=== PATIENT | female | born 1960 | race Caucasian/White ===

== ENCOUNTER 2022-04-26 15:35 | Inpatient (IN) ==
[2022-04-26] MEDS ORDERED: Patient's ALLERGY Info needs ENTERED SCH (18:00)
[2022-04-26] MEDS ORDERED: HYDROmorphone INJ 1 MG/ML SYRINGE IV STA (19:01)
[2022-04-26 19:12] LABS: Basophils # (auto) 0.01 K/uL (0-0.2); Basophils % (auto) 0.1 %; Eosinophils # (auto) 0.07 K/uL (0-0.50); Eosinophils % (auto) 0.7 %; Hematocrit (blood only) 32.4 % (34.1-44.9); Hemoglobin 10.8 g/dl (12.0-16.0); Immature Granulocytes # (auto) 0.03 K/uL (0.00-0.02); Immature Granulocytes % (auto) 0.3 %; Lymphocytes # (auto) 0.98 K/uL (1.2-3.4); Lymphocytes % (auto) 9.7 %; Mean Corpuscular Hemoglobin 28.9 pg (25.0-34.0); Mean Corpuscular Hgb Conc 33.3 g/dL (32.0-36.0); Mean Corpuscular Volume 86.6 fL (80.0-100.0); Mean Platelet Volume 11.4 fL (9.4-12.3); Monocytes # (auto) 0.77 K/uL (0.24-0.82); Monocytes % (auto) 7.6 %; Neutrophils # (auto) 8.28 K/uL (1.4-6.5); Neutrophils % (auto) 81.6 %; Platelet Count 178 K/uL (130-400); RDW Standard Deviation 40.9 fL (36.4-46.3); Red Blood Count 3.74 M/uL (3.93-5.22); White Blood Count 10.14 K/ul (4.8-10.8)
--- NOTE | 2022-04-26 19:20 | Emergency Department Note ---
History of Present Illness General Chief complaint: Shoulder Pain Stated complaint: SHOULDER INJURY Time Seen by Provider: 04/26/22 18:45 History of Present Illness Maximum Pain Intensity: 10 This is a 61-year-old female with a history of tachycardia, reflux, who was referred to the emergency department by Dr. Kirkpatrick (orthopedics) for admission secondary to uncontrolled pain related to a complex fracture to her right shoulder. Patient was seen at an outside facility 2 days ago after a fall onto the right shoulder. She states she was standing on a chair removing a tote off the top shelf when she accidentally lost her balance and landed on concrete hitting the floor. She did not hit her head or lose consciousness. At the outside ED, she was diagnosed with a shoulder fracture, given a sling and pain medication, and told to follow-up with orthopedics. She states that she has not slept in 2 days because of the pain. She has been taking 2 Percocets every 4 hours without much relief. She followed up with orthopedics today who referred her to the emergency department, requested CT of the shoulder and admission for pain control until she can have a reverse total shoulder arthroplasty 2 days from now. Patient denies any headache, neck pain, back pain, chest pain, shortness of breath, nausea, vomiting, numbness or tingling in her hands or legs. Does not take any blood thinners. Past Med/Surg History Medical History GERD (gastroesophageal reflux disease) Hypertension Tachycardia Surgical History H/O: hysterectomy Social History Smoking Status: Never smoker Feels Safe at Home: Yes Review of Systems See HPI for pertinent positives & negatives. and A total of 10 systems reviewed and were otherwise negative Physical Exam Vital Signs Vital Signs - 24 hr 04/26/22 17:28 04/26/22 18:31 Temperature 98.6 F Temperature Source Temporal Artery Scan Pulse Rate 92 H Pulse Rate [Right Finger] 93 H Respiratory Rate 20 14 Respiratory Effort / Characteristics Non-Labored Non-Labored Spontaneous Respiratory Depth Normal Normal Respiratory Pattern Regular Blood Pressure 149/82 H Blood Pressure [Left Arm] 147/77 H Blood Pressure Mean 104 Blood Pressure Mean [Left Arm] 100 Pulse Oximetry 94 96 Oxygen Delivery Method Room Air Room Air Sepsis Recent Fever Within 48 Hours No Sepsis New/Unexplained Change in Mental Status N/A Sepsis Action Taken by Nursing No Action Required CONSTITUTIONAL: Well developed, well nourished, in no acute distress. HEAD: Normocephalic, atraumatic. NECK: Full active range of motion. No spinous process tenderness RESPIRATORY: Breathing unlabored and symmetric. Lungs clear to auscultation bilaterally. No wheeze, rales, or rhonchi. CARDIOVASCULAR: Regular rate and rhythm. No murmurs, rubs, or gallops. Radial pulses 2+ bilaterally. CHEST: Nontender, no crepitus. ABDOMEN: Normal bowel sounds. Soft, nontender, no peritonitis. No masses. MUSCULOSKELETAL: Right arm in sling. There is significant tenderness over the shoulder. No ecchymosis or skin disruption. Able to move all fingers. Back: No thoracic, lumbar, sacral spinous process tenderness. No step-off deformity. SKIN: [place], warm, dry. Bilateral hands are warm and well-perfused. NEUROLOGIC: Awake, alert, oriented. Gaze is conjugate. Face symmetric. No sensory deficits in bilateral hands or axillary nerve distribution. PSYCHIATRIC: Appropriate. Normal affect. Course Administered Medications Discontinued Medications Diazepam (Diazepam 5 Mg/Ml Inj 10ml Vial) 2 mg IV NOW STA Stop: 04/26/22 19:25 Last Admin: 04/26/22 19:48 Dose: 2 mg Documented By: Hydromorphone HCl (Hydromorphone Inj 1 Mg/Ml Syringe) 1 mg IV NOW STA Stop: 04/26/22 19:02 Last Admin: 04/26/22 19:47 Dose: 1 mg Documented By: Potassium Chloride (Potassium Chloride Crtab 20 Meq Tabcr) 40 meq PO NOW STA Stop: 04/26/22 19:56 Last Admin: 04/26/22 20:20 Dose: 40 meq Documented By: Medical Decision Making Differential Diagnosis Fracture, uncontrolled pain, neurovascular injury, concussion, intracranial hemorrhage, dislocation, subluxation, compartment syndrome, among other pathology Laboratory Data Result diagrams: 04/26/22 18:20 04/26/22 18:20 Lab Results 04/26/22 04/26/22 04/26/22 Range/Units 18:20 18:20 19:50 WBC 10.14 (4.8-10.8) K/ul RBC 3.74 L (3.93-5.22) M/uL Hgb 10.8 L (12.0-16.0) g/dl Hct 32.4 L (34.1-44.9) % MCV 86.6 (80.0-100.0) fL MCH 28.9 (25.0-34.0) pg MCHC 33.3 (32.0-36.0) g/dL RDW Std Deviation 40.9 (36.4-46.3) fL RDW Coeff of Dave 13.0 (11.5-14.5) % Plt Count 178 (130-400) K/uL MPV 11.4 (9.4-12.3) fL Immature Gran % (Auto) 0.3 % Neut % (Auto) 81.6 % Lymph % (Auto) 9.7 % [place] % (Auto) 7.6 % Eos % (Auto) 0.7 % Baso % (Auto) 0.1 % Neut # (Auto) 8.28 H (1.4-6.5) K/uL Lymph # (Auto) 0.98 L (1.2-3.4) K/uL [place] # (Auto) 0.77 (0.24-0.82) K/uL Eos # (Auto) 0.07 (0-0.50) K/uL Baso # (Auto) 0.01 (0-0.2) K/uL Immature Gran # (Auto) 0.03 H (0.00-0.02) K/uL Sodium 135 L (136-145) mmol/L Potassium 3.2 L (3.5-5.1) mmol/L Chloride 98 (98-107) mmol/L Carbon Dioxide 28 (21-32) mmol/L Anion Gap 9 (3-11) BUN 15 (6-23) mg/dl Creatinine 1.03 (0.6-1.2) mg/dl Est Cr Clr Drug Dosing 65.2 ml/min Est GFR ( Amer) 68.9 ml/min Est GFR (Non-Af Amer) 59.5 ml/min BUN/Creatinine Ratio 14.6 (10-20) Glucose 197 H (70-99(Fasting)) mg/dl Calcium 8.4 L (8.5-10.1) mg/dl Total Bilirubin 0.5 (0.2-1.0) mg/dl AST 23 (13-39) U/L ALT 19 (7-52) U/L Alkaline Phosphatase 84 (34-104) U/L Total Protein 7.1 (6.0-8.3) gm/dl Albumin 4.1 (3.4-5.0) gm/dl Globulin 3.0 (2.5-4.0) gm/dl Albumin/Globulin Ratio 1.4 (0.9-2) SARS-CoV-2, RNA, NAAT NEGATIVE (NEGATIVE) Imaging Data Radiologist's Impression: Shoulder CT 04/26/22 19:[address] DOSE: 783.95 mGy.cm HISTORY: Right shoulder fracture with pain. Known fracture, planning purposes TECHNIQUE: Multiaxial CT images of the right shoulder were performed and reformatted in the sagittal and coronal plane without the use of contrast. A dose lowering technique was utilized adhering to the principles of ALARA. COMPARISON: None. FINDINGS: The right clavicle and scapula are intact. There is a severely comminuted nondisplaced fracture involving the right humeral head/neck. There is anterior dislocation of the humeral head fragments in relation to the glenoid. There is associated impaction fracture of the screw head fragment with the anterior-inferior glenoid. The fragments demonstrate up to 3 cm of lateral displacement. There is an associated moderate lipohemarthrosis at the glenohumeral joint. Soft tissue swelling within the right upper arm. Patchy peripheral groundglass densities at the right lung base may represent dependent change. IMPRESSION: Severely comminuted and displaced right humeral head/neck fracture with associated anterior dislocation of the humeral head fragments. ACT 112: Negative or not required by law. Electronically signed by: Sourav Flynn M.D. 04/26/2022 8:17 PM MDM Narrative 61-year-old female referred to the emergency department by orthopedics for admission with plan for surgical fixation of a right shoulder complex fracture. On initial exam, patient slightly hypertensive. No additional injuries were identified on review of systems and physical exam as described above. She appears to be neurovascularly intact. CT of the right shoulder was requested by Dr. Kirkpatrick and this was obtained demonstrating a severely comminuted and displaced right humeral head/neck fracture with associated anterior dislocation of the humeral head fragments. Patient given Dilaudid and Valium for initial pain control. Basic labs were obtained demonstrating mild anemia with a hemoglobin of 10.8. Potassium 3.2, repleted orally by hospitalist. Glucose somewhat elevated at 197, may be undiagnosed diabetes or pain response. Case discussed with Christina Ferrari PA-C with [facility] Hospitalist group who agrees to admit the patient under Dr. Ricks with Ortho consult. Impression & Plan Shoulder fracture, right, Hypokalemia, Uncontrolled pain Discharge Plan Visit Data Chief Complaint: Shoulder Pain Stated Complaint: SHOULDER INJURY ED Provider: Gagan Burrell ED Midlevel Provider: Ventura Thao Discharge Problem: Shoulder fracture, right, Hypokalemia, Uncontrolled pain Patient Disposition: Admitted As Inpatient Condition: Fair Referrals Referrals: PCP,NO [Primary Care Provider] - : Shoulder fracture, right Qualifiers: Encounter type: initial encounter Fracture type: closed Qualified Code(s): S42.91XA - Fracture of right shoulder girdle, part unspecified, initial encounter for closed fracture
[2022-04-26 19:49] LABS: Albumin Globulin Ratio 1.4 (0.9-2); Albumin Level 4.1 gm/dl (3.4-5.0); BUN Creatinine Ratio 14.6 (10-20); Bilirubin,Total 0.5 mg/dl (0.2-1.0); Calcium 8.4 mg/dl (8.5-10.1); Creatinine Clr Calc Pharmacy 65.2 ml/min; Est GFR (African American) 68.9 ml/min; Est GFR (Non-African American) 59.5 ml/min; Potassium 3.2 mmol/L (3.5-5.1); Total Protein 7.1 gm/dl (6.0-8.3)
--- NOTE | 2022-04-26 19:50 | History & Physical Report ---
Date of Service April 26, 2022 Assessment & Plan (1) Shoulder fracture, right: Plan: - s/p mechanical fall on Tuesday, per ED triage note, it is a displaced right proximal humerus fracture - Seen at OSH on Tuesday, d/c'd with Percocet for pain control and f/u with Dr. Kirkpatrick/ortho today, who sent her over today for pain not adequately controlled. - CT: Severely comminuted and displaced right humeral head/neck fracture with associated anterior dislocation of the humeral head fragments. - For now: prn pain meds, regular diet, and ortho consult in AM. Apparently there are plans for shoulder repair this Saturday 04/28. - NV checks q4h. (2) Hypertension: Plan: - Continue triamterene/HCTZ. (3) Tachycardia: Plan: - Reportedly on atenolol at home, unknown dose. Will check with pt. (4) GERD (gastroesophageal reflux disease): Plan: - Protonix daily. Plan - Admit to med/tele for now for reports of tachycardia - SCDs for vte ppx for now - Full Code. History of Present Illness Chief Complaint: right shoulder pain s/p fracture Primary Care Provider: NO PCP Miguel Gracia is a 61-year-old female with a history of hypertension, intermittent sinus tachycardia, and GERD who is presenting today at the referral of orthopedics for pain management. Patient fell off a chair 3 days ago on Tuesday, 04/23 while standing on it to reach something overhead. She was seen at an outside hospital that day. She has a displaced right proximal humerus fracture, was sent home with Percocet for pain management and was to follow-up with orthopedics today for surgical planning. She met with Dr. Kirkpatrick today, and he been complaining of 10/10 pain not relieved with prescribed Percocet, Aleve, or Tylenol and has not been able to sleep due to the pain. He referred her to the ED today to be admitted for pain control with plan for a procedure 04/28. On presentation, heart rate in the 90s, mildly hypertensive, otherwise vital signs within normal limits and stable. Labs notable for an Hgb of 10.8 unsure of baseline, CMP with K 3.2, glucose 197, calcium 8.4. CT: Severely comminuted and displaced right humeral head/neck fracture with associated anterior dislocation of the humeral head fragments. Past Med/Surg History Medical History GERD (gastroesophageal reflux disease) Hypertension Tachycardia Surgical History H/O: hysterectomy Social History Smoking Status: Never smoker Feels Safe at Home: Yes Review of Systems Review of Systems: Constitutional: No fever/chills, weakness, fatigue, myalgias, anorexia, night sweats Eyes: No diplopia, no worsening or blurred vision ENT: normal hearing, no trouble swallowing Respiratory: No cough, sputum, dyspnea at rest or on exertion Cardiovascular: No chest pain, tightness or palpitations Abdomen: No pain, nausea, vomiting, diarrhea or constipation : Denies dysuria, hematuria, increased urgency/frequency, urinary retention Musculoskeletal: right shoulder throbbing pain 8/10 currently; No joint pain, calf pain, swelling Neurologic: No weakness, numbness/tingling, or balance problems Psychiatric: No anxiety or depression Skin: No rash or itch Physical Exam Physical Exam: General: awake, alert, no apparent distress Head: Normocephalic, atraumatic ENT: PERRL, EOMI, no pharyngeal exudate, mucous membranes moist Chest: Clear to auscultation, on room air, no adventitious breath sounds Cardiac: Regular rate and rhythm, no murmur, no JVD, normal peripheral pulses, good capillary refill Abdominal: NABS x 4 quadrants, soft, nontender to palpation, no rebound, guarding or tenderness Extremities: right shoulder in sling, pain on ROM and on palpation; pulses intact and equal b/l; Normal inspection, no peripheral edema or erythema, calfs nontender to palpation Psych: Normal mood and affect Neuro: AAO x 3, strength intact bilaterally and rated 5/5, no motor deficits, speech is clear, no peripheral sensory deficits Skin: no rash or erythema Results & Data Results & Data ([facility]) Vital Signs (Past 12 Hours) Vital Signs Temp Pulse Pulse Resp BP BP Pulse Ox 04/26/22 18:31 93 H 14 147/77 H 96 11/28/22 17:28 37.0 C 92 H 20 149/82 H 94 O2 Del Method 04/26/22 18:31 Room Air 04/26/22 17:28 Room Air Laboratory Results Abnormal lab results 04/26/22 04/26/22 Range/Units 18:20 18:20 RBC 3.74 L (3.93-5.22) M/uL Hgb 10.8 L (12.0-16.0) g/dl Hct 32.4 L (34.1-44.9) % Neut # (Auto) 8.28 H (1.4-6.5) K/uL Lymph # (Auto) 0.98 L (1.2-3.4) K/uL Immature Gran # (Auto) 0.03 H (0.00-0.02) K/uL Sodium 135 L (136-145) mmol/L Potassium 3.2 L (3.5-5.1) mmol/L Glucose 197 H (70-99(Fasting)) mg/dl Calcium 8.4 L (8.5-10.1) mg/dl Diagnostic Findings Shoulder CT 04/26/22 19:[address] DOSE: 783.95 mGy.cm HISTORY: Right shoulder fracture with pain. Known fracture, planning purposes TECHNIQUE: Multiaxial CT images of the right shoulder were performed and reformatted in the sagittal and coronal plane without the use of contrast. A dose lowering technique was utilized adhering to the principles of ALARA. COMPARISON: None. FINDINGS: The right clavicle and scapula are intact. There is a severely com minuted nondisplaced fracture involving the right humeral head/neck. There is anterior dislocation of the humeral head fragments in relation to the glenoid. There is associated impaction fracture of the screw head fragment with the anterior-inferior glenoid. The fragments demonstrate up to 3 cm of lateral displacement. There is an associated moderate lipohemarthrosis at the glenohumeral joint. Soft tissue swelling within the right upper arm. Patchy peripheral groundglass densities at the right lung base may represent dependent change. IMPRESSION: Severely comminuted and displaced right humeral head/neck fracture with associated anterior dislocation of the humeral head fragments. ACT 112: Negative or not required by law. Electronically signed by: Sourav Flynn M.D. 04/26/2022 8:17 PM Code Status & VTE Plan Code Status Full Code. Supervising Physician Co-Signing Physician Notes Patient seen and examined, chart reviewed, case discussed with CALEB Ferrari and I agree with the assessment and plan as above. In brief, patient is a 61yo female with history of HTN and GERD presenting with severe pain secondary to right humeral head/neck fracture. Patient sustained a fall two days ago while standing on a chair and fell onto her right shoulder. No head trauma or LOC. She was seen at an outside facility and was given Percocet 2 tabs q 4 hours for pain. She has been compliant with these medications but is still in severe pain. She is to followup with Orthopedics for reverse total shoulder arthroplasty on 04/28/22. Neurovascularly intact. Patient denies chest pain, cough, SOB or fever. No additional complaints at this time. On exam she is afebrile, HD stable, NAD. Resting comfortably. RUE immobilized in sling Skin -intact, no rashes/lesions HEENT - NC/AT, MMM Heart - +S1/S2, regular, no m/r/g Lungs - CTA anteriorly, no rales/rhonchi/wheezes Abd - Soft, NT/ND Ext - warm, well perfused. RUE NV intact Labs and images reviewed CT as above with severely comminuted and displaced right humeral head/neck fracutre with associated anterior dislocation of the humeral head fragments. K=3.2 [id number] Assessment/Plan 61yo female s/p fall from standing on a chair resulting in right humeral head/neck fracture with anterior dislocation of fragments presenting for pain control. She is to have reverse total shoulder arthroplasty on 04/28/22. -Pain control, Orthopedics consultation appreciated. NV checks q 4 hours -HTN management with Atenolol and Triamterene/HCTZ -GERD management with daily Protonix -Remainder as above PG Care Time/CCT Total # of Minutes Spent Total Time Spent with Patient: Total time spent is greater than 50% in coordination of care (as documented) at patient's floor/unit and/or counseling patient: Coding Level of Care Code 10035 Initial Inpt Care Lvl 3 Diagnoses Shoulder fracture, right S42.91XA Hypertension I10 Tachycardia R00.0 GERD (gastroesophageal reflux disease) K21.9
[2022-04-26] MEDS ORDERED: POTASSIUM CHLORIDE CRTAB 20 MEQ TABCR PO STA (19:55)
--- NOTE | 2022-04-26 20:20 | CT Scan Report ---
RIGHT SHOULDER CT CT DOSE: 783.95 mGy.cm HISTORY: Right shoulder fracture with pain. Known fracture, planning purposes TECHNIQUE: Multiaxial CT images of the right shoulder were performed and reformatted in the sagittal and coronal plane without the use of contrast. A dose lowering technique was utilized adhering to th e principles of ALARA. COMPARISON: None. FINDINGS: The right clavicle and scapula are intact. There is a severely comminuted nondisplaced frac ture involving the right humeral head/neck. There is anterior dislocation of the humeral head fragmen ts in relation to the glenoid. There is associated impaction fracture of the screw head fragment with the anterior-inferior glenoid. The fragments demonstrate up to 3 cm of lateral displacement. There i s an associated moderate lipohemarthrosis at the glenohumeral joint. Soft tissue swelling within the right upper arm. Patchy peripheral groundglass densities at the right lung base may represent depende nt change. IMPRESSION: Severely comminuted and displaced right humeral head/neck fracture with associated anterior dislocati on of the humeral head fragments. ACT 112: Negative or not required by law. Electronically signed by: Sourav Flynn M.D. 04/26/2022 8:17 PM
[2022-04-26] MEDS ORDERED: MoRPHine SULFATE 4 MG/ML 1 ML CARP\\VIAL IV STA (22:38)
[2022-04-26] MEDS ORDERED: TRIAMCINOLONE ACET 0.025% CR 15 GM TUBE EXT PRN (23:28)
[2022-04-26] MEDS ORDERED: HYDROmorphone INJ 0.5 MG/0.5 ML SYR IV PRN (23:28)
[2022-04-26] MEDS ORDERED: BETAMETHASONE VAL 0.1% CR 15 GM EXT PRN (23:28)
[2022-04-26] MEDS ORDERED: metroNIDAZOLE 0.75% TOPICAL GEL 45 GM TUBE TOP PRN (23:28)
[2022-04-26] MEDS ORDERED: FLUTICASONE PROPIONATE NA SPR 16 GM BTL PRN (23:28)
[2022-04-27] MEDS: HYDROmorphone INJ 0.5 MG/0.5 ML SYR IV PRN ×7 (02:44→22:36)
[2022-04-27] MEDS: ACETAMINOPHEN 325 MG TAB PO PRN ×2 (04:09→13:54)
[2022-04-27] MEDS ORDERED: FLUARIX QUADRIVALENT 0.5 ML SYR IM ONE (07:42)
[2022-04-27] MEDS ORDERED: PNEUMOCOCCAL POLYSACCHARIDES 25 MCG/0.5 ML VIAL/SYR IM ONE (07:42)
[2022-04-27] MEDS: TRIAMTERENE/HCTZ 37.5/25MG TAB PO SCH (08:48)
[2022-04-27] MEDS: ATENOLOL 25 MG TABLET PO SCH (08:48)
[2022-04-27] MEDS: PANTOprazole 40 MG TAB PO SCH (08:48)
[2022-04-27] MEDS: BRIMONIDINE TARTRATE-P 0.15% 5 ML BTL OP SCH (08:49)
[2022-04-27] MEDS: prednisoLONE acetate 1% OP SUSP 5 ML BTL OPL SCH ×2 (08:51→23:17)
[2022-04-27] MEDS: LIDOCAINE 5% 1 PATCH TD SCH (08:52)
--- NOTE | 2022-04-27 11:04 | Orthopedic Consultation ---
Date of Consultation April 27, 2022 Assessment & Plan (1) Shoulder fracture, right: 61-year-old white female with proximal humerus fracture. Patient will be added onto the surgical schedule for tomorrow, 04/28/2022 for planned reverse total shoulder arthroplasty. Patient understands the plan and is in agreement. History of Present Illness Reason for Consultation: Right proximal humerus fracture Attending Physician: Samson Morales DO History of Present Illness Patient is a 61-year-old female with a history of hypertension, intermittent sinus tachycardia, and GERD. Patient states that she was up on a stepladder getting down a canvas told her were covered. She was in the process of pulling on the tote and realize that it was fairly heavy. She tried to let go of the tote because of how much it weighed however her hand was caught in the handle and as the tote fell, it pulled her off of the stepladder onto the floor. She landed on her right shoulder on cement and had immediate pain in her right shoulder. She was seen in [facility] yesterday under Dr. Kirkpatrick and Scar Tian PA-C's care. X-rays were taken and was found she had a comminuted proximal right humerus fracture. The fracture was going to require a reverse total shoulder arthroplasty. Plans were for direct admission to the hospital however due to code flow restrictions, this could not be done. The patient was then sent to the emergency room for planned admission and CT scan of the right shoulder. She was admitted by the medicine service and we will be taking care of her fracture. Currently she is awake and alert. Pain is controlled. Allergies Allergy/AdvReac Type Severity Reaction Status Date / Time iodine Allergy Mild Hives Verified 04/27/22 09:18 Sulfa (Sulfonamide Allergy Mild Hives Verified 04/27/22 09:18 Antibiotics) sulfamethoxazole Allergy Mild Hives Verified 04/27/22 09:18 [From Bactrim] trimethoprim [From Bactrim] Allergy Mild Hives Verified 04/27/22 09:18 povidone-iodine Allergy Unknown Hives Verified 04/27/22 11:36 [From Betadine] Home Medications Medication Instructions Recorded Confirmed Type albuterol sulfate 2.5 mg/3 mL 2.5 mg continuous nebulization Q6H 04/27/22 04/27/22 History (0.083 %) solution for nebulization albuterol sulfate 90 mcg/actuation 2 inh inhalation Q6H 04/27/22 04/27/22 History aerosol inhaler atenolol 25 mg tablet 25 mg PO QAM 04/27/22 04/27/22 History benzonatate 100 mg capsule 100 mg PO BID PRN Cough 04/27/22 04/27/22 History betamethasone valerate 0.1 % lotion 1 applic topical 2XWK PRN Dry Skin 04/27/22 04/27/22 History brimonidine 0.2 % eye drops 1 drp OPR BID 04/27/22 04/27/22 History ketoconazole 2 % shampoo 1 applic topical 2XWK PRN Dry Skin 04/27/22 04/27/22 History metronidazole 0.75 % topical cream 1 applic topical BID 04/27/22 04/27/22 History pantoprazole 40 mg tablet,delayed 40 mg PO DAILY 04/27/22 04/27/22 History release triamterene 37.5 1 tab PO QAM 04/27/22 04/27/22 History mg-hydrochlorothiazide 25 mg tablet Patient History Medical History GERD (gastroesophageal reflux disease) Hypertension Tachycardia Surgical History H/O: hysterectomy Social History Smoking Status: Never smoker Second Hand Exposure: Yes; Do You Dip or Chew Tobacco: No; Tobacco Cessation Education Requested by Patient: No Hx Alcohol Use: Yes Hx Substance Use: No Preferred Language: Hungarian Communication Ability: Effective Skeet Operator Required: No Beliefs That Will Affect Care: None Current Living Situation: Spouse Current Living Situation Comment: lives with two grandchildren Other Information That Helps Us Care for You: No Feels Safe at Home: Yes Safety Concerns: Feels Safe At This Time Assistive Devices: None Physical Exam Physical Exam: Patient is a 61-year-old white female who appears her stated a ge. She is pleasant and cooperative. Oriented x3. No acute distress. On examination of her right upper extremity, she has swelling over the right proximal humerus/shoulder. Pain with palpation. Some swelling traveling distally. She has no pain in the right elbow on palpation. Denies pain in the right wrist and has good range of motion. She is moving her fingers well and has good sensation. Capillary fill is less than 2 seconds. Left upper extremity is unaffected and she has good range of motion of the left shoulder, elbow, and wrist. Lower extremities are unaffected and range of motion is is within normal limits of both lower extremities. Distal pulses are equal bilaterally of the upper and lower extremities. There is no gross motor or sensory loss seen at this time. She denies any increased cervical, thoracic, lumbar pain. Results & Data ([facility]) Vital Signs (Past 12 Hours) Vital Signs Temp Pulse Resp BP Pulse Ox Pulse Ox O2 Del Method 04/27/22 07:17 36.9 C 92 H 20 137/78 92 Room Air 04/27/22 07:10 98 H 20 137/78 95 Room Air 04/27/22 06:29 91 H 18 130/71 95 Room Air 04/27/22 01:57 92 04/27/22 01:56 95 H 18 151/88 H 92 Room Air O2 Del Method 04/27/22 07:17 04/27/22 07:10 04/27/22 06:29 04/27/22 01:57 Room Air 04/27/22 01:56 Laboratory Results Laboratory Results WBC 10.14 K/ul (4.8-10.8) 04/26/22 18:20 RBC 3.74 M/uL (3.93-5.22) L 04/26/22 18:20 Hgb 10.8 g/dl (12.0-16.0) L 04/26/22 18:20 Hct 32.4 % (34.1-44.9) L 04/26/22 18:20 MCV 86.6 fL (80.0-100.0) 04/26/22 18:20 MCH 28.9 pg (25.0-34.0) 04/26/22 18:20 MCHC 33.3 g/dL (32.0-36.0) 04/26/22 18:20 RDW Std Deviation 40.9 fL (36.4-46.3) 04/26/22 18:20 RDW Coeff of Dave 13.0 % (11.5-14.5) 04/26/22 18:20 Plt Count 178 K/uL (130-400) 04/26/22 18:20 MPV 11.4 fL (9.4-12.3) 04/26/22 18:20 Immature Gran % (Auto) 0.3 % 04/26/22 18:20 Neut % (Auto) 81.6 % 04/26/22 18:20 Lymph % (Auto) 9.7 % 04/26/22 18:20 [place] % (Auto) 7.6 % 04/26/22 18:20 Eos % (Auto) 0.7 % 04/26/22 18:20 Baso % (Auto) 0.1 % 04/26/22 18:20 Neut # (Auto) 8.28 K/uL (1.4-6.5) H 04/26/22 18:20 Lymph # (Auto) 0.98 K/uL (1.2-3.4) L 04/26/22 18:20 [place] # (Auto) 0.77 K/uL (0.24-0.82) 04/26/22 18:20 Eos # (Auto) 0.07 K/uL (0-0.50) 04/26/22 18:20 Baso # (Auto) 0.01 K/uL (0-0.2) 04/26/22 18:20 Immature Gran # (Auto) 0.03 K/uL (0.00-0.02) H 04/26/22 18:20 Sodium 135 mmol/L (136-145) L 04/26/22 18:20 Potassium 3.2 mmol/L (3.5-5.1) L 04/26/22 18:20 Chloride 98 mmol/L (98-107) 04/26/22 18:20 Carbon Dioxide 28 mmol/L (21-32) 04/26/22 18:20 Anion Gap 9 (3-11) 04/26/22 18:20 BUN 15 mg/dl (6-23) 04/26/22 18:20 Creatinine 1.03 mg/dl (0.6-1.2) 04/26/22 18:20 Est Cr Clr Drug Dosing 65.2 ml/min 04/26/22 18:20 Est GFR ( Amer) 68.9 ml/min 04/26/22 18:20 Est GFR (Non-Af Amer) 59.5 ml/min 04/26/22 18:20 BUN/Creatinine Ratio 14.6 (10-20) 04/26/22 18:20 Glucose 197 mg/dl (70-99(Fasting)) H 04/26/22 18:20 Calcium 8.4 mg/dl (8.5-10.1) L 04/26/22 18:20 Total Bilirubin 0.5 mg/dl (0.2-1.0) 04/26/22 18:20 AST 23 U/L (13-39) 04/26/22 18:20 ALT 19 U/L (7-52) 04/26/22 18:20 Alkaline Phosphatase 84 U/L (34-104) 04/26/22 18:20 Total Protein 7.1 gm/dl (6.0-8.3) 04/26/22 18:20 Albumin 4.1 gm/dl (3.4-5.0) 04/26/22 18:20 Globulin 3.0 gm/dl (2.5-4.0) 04/26/22 18:20 Albumin/Globulin Ratio 1.4 (0.9-2) 04/26/22 18:20 SARS-CoV-2, RNA, NAAT NEGATIVE (NEGATIVE) 04/26/22 19:[address] 04/26/22 19:[address] DOSE: 783.95 mGy.cm HISTORY: Right shoulder fracture with pain. Known fracture, planning purposes TECHNIQUE: Multiaxial CT images of the right shoulder were performed and reformatted in the sagittal and coronal plane without the use of contrast. A dose lowering technique was utilized adhering to the principles of ALARA. COMPARISON: None. FINDINGS: The right clavicle and scapula are intact. There is a severely comminuted nondisplaced fracture involving the right humeral head/neck. There is anterior dislocation of the humeral head fragments in relation to the glenoid. There is associated impaction fracture of the screw head fragment with the anterior-inferior glenoid. The fragments demonstrate up to 3 cm of lateral displacement. There is an associated moderate lipohemarthrosis at the glenohumeral joint. Soft tissue swelling within the right upper arm. Patchy peripheral groundglass densities at the right lung base may represent dependent change. IMPRESSION: Severely comminuted and displaced right humeral head/neck fracture with associated anterior dislocation of the humeral head fragments. ACT 112: Negative or not required by law. Electronically signed by: Sourav Flynn M.D. 04/26/2022 8:17 PM (1) Shoulder fracture, right Encounter type: initial encounter Fracture type: closed Qualified Code(s): S42.91XA - Fracture of right shoulder girdle, part unspecified, initial encounter for closed fracture
[2022-04-27] MEDS ORDERED: HYDROmorphone INJ 0.5 MG/0.5 ML SYR IV PRN (14:52)
[2022-04-27] MEDS: ACETAMINOPHEN 325 MG TAB PO SCH ×2 (17:55→21:22)
--- NOTE | 2022-04-27 18:38 | Hospitalist Progress Note ---
Date of Service April 27, 2022 Assessment & Plan (1) Shoulder fracture, right: Plan: - s/p mechanical fall on Tuesday, per ED triage note, it is a displaced right proximal humerus fracture - For surgery tomorrow. Still uncontrolled painescalate pain control. Co ntinue to follow. (2) Hypertension: Plan: - Continue triamterene/HCTZ. Hold in a.m. prior to surgery (3) Tachycardia: Plan: - has improved (4) GERD (gastroesophageal reflux disease): Plan: - Protonix daily. Plan - SCDs for vte ppx for now pending surgery - Full Code. Admission and Anticipated Discharge Date Admission Date: April 26, 2022 Subjective for surgery tomorrow. Pain still poorly controlled. No other acute complaints. Review of Systems Review of Systems: All systems reviewed & are unremarkable except as noted in HPI & below Physical Exam Physical Exam: General she is awake and alert pleasant but appears uncomfortable. Arm in a sling. Breathing unlabored no accessory muscle use good effort. Skin shows no rashes no pallor or icterus. Neuro without focal deficits. Results & Data Results & Data ([facility]) Vital Signs (Past 12 Hours) Vital Signs Temp Pulse Pulse Resp BP Pulse Ox O2 Del Method 04/27/22 17:00 91 H 04/27/22 17:07 98.2 F 86 18 112/71 95 Room Air 04/27/22 11:26 88 20 139/74 96 Room Air 04/27/22 07:17 98.4 F 92 H 20 137/78 92 Room Air 04/27/22 07:10 98 H 20 137/78 95 Room Air PG Care Time/CCT Total # of Minutes Spent Total Time Spent with Patient: Total time spent is greater than 50% in coordination of care (as documented) at patient's floor/unit and/or counseling patient: Coding Level of Care Code 30355 Subseq Hosp Care Lvl 3 Diagnoses Shoulder fracture, right S42.91XA Encounter type: initial encounter Fracture type: closed Hypertension I10 Tachycardia R00.0 GERD (gastroesophageal reflux disease) K21.9 (1) Shoulder fracture, right Encounter type: initial encounter Fracture type: closed Qualified Code(s): S42.91XA - Fracture of right shoulder girdle, part unspecified, initial encounter for closed fracture
[2022-04-27] MEDS: prednisoLONE acetate 1% OP SUSP 5 ML BTL OPR SCH (23:17)
[2022-04-27] MEDS: oxyCODONE HCL IR 5 MG TAB (IMMEDIATE RELEASE) PO PRN (23:33)
[2022-04-28] MEDS: HYDROmorphone INJ 0.5 MG/0.5 ML SYR IV PRN ×4 (01:53→09:01)
[2022-04-28] MEDS: oxyCODONE HCL IR 5 MG TAB (IMMEDIATE RELEASE) PO PRN ×2 (03:36→08:06)
[2022-04-28 06:27] LABS: Basophils # (auto) 0.01 K/uL (0-0.2); Basophils % (auto) 0.1 %; Eosinophils # (auto) 0.13 K/uL (0-0.50); Eosinophils % (auto) 1.4 %; Hematocrit (blood only) 30.6 % (34.1-44.9); Hemoglobin 10.1 g/dl (12.0-16.0); Immature Granulocytes # (auto) 0.02 K/uL (0.00-0.02); Immature Granulocytes % (auto) 0.2 %; Lymphocytes # (auto) 1.79 K/uL (1.2-3.4); Lymphocytes % (auto) 19.9 %; Mean Corpuscular Hemoglobin 28.5 pg (25.0-34.0); Mean Corpuscular Volume 86.2 fL (80.0-100.0); Mean Platelet Volume 10.9 fL (9.4-12.3); Monocytes # (auto) 1.05 K/uL (0.24-0.82); Monocytes % (auto) 11.7 %; Neutrophils # (auto) 6.01 K/uL (1.4-6.5); Neutrophils % (auto) 66.7 %; Platelet Count 172 K/uL (130-400); RDW Coefficient of Variation 12.9 % (11.5-14.5); Red Blood Count 3.55 M/uL (3.93-5.22); White Blood Count 9.01 K/ul (4.8-10.8)
[2022-04-28] MEDS ORDERED: BUPIVACAINE 0.5 % 5 MG/1 ML PF 10ML VIAL ONE (06:33)
[2022-04-28] MEDS ORDERED: SUGAMMADEX SODIUM 200 MG/2 ML VIAL IV ONE (06:54)
[2022-04-28 07:20] LABS: Calcium 8.4 mg/dl (8.5-10.1); Creatinine Clr Calc Pharmacy 67.2 ml/min; Est GFR (African American) 71.4 ml/min; Est GFR (Non-African American) 61.6 ml/min; Potassium 3.4 mmol/L (3.5-5.1)
[2022-04-28] MEDS: PANTOprazole 40 MG TAB PO SCH (08:06)
[2022-04-28] MEDS: ACETAMINOPHEN 325 MG TAB PO SCH ×3 (08:06→22:36)
[2022-04-28] MEDS: TRIAMTERENE/HCTZ 37.5/25MG TAB PO SCH (08:06)
[2022-04-28] MEDS: ATENOLOL 25 MG TABLET PO SCH (08:07)
[2022-04-28] MEDS: LIDOCAINE 5% 1 PATCH TD SCH (08:07)
[2022-04-28] MEDS: BRIMONIDINE TARTRATE-P 0.15% 5 ML BTL OP SCH ×2 (10:17→23:06)
[2022-04-28] MEDS: prednisoLONE acetate 1% OP SUSP 5 ML BTL OPL SCH ×2 (10:28→21:40)
--- NOTE | 2022-04-28 13:03 | Electrocardiogram Report ---
Test Reason : Blood Pressure : / mmHG Vent. Rate : 084 BPM Atrial Rate : 084 BPM P-R Int : 148 ms QRS Dur : 074 ms QT Int : 382 ms P-R-T Axes : 037 017 029 degrees QTc Int : 451 ms Normal sinus rhythm No previous ECGs available Confirmed by Diego Greene ([id number]) on 04/28/2022 1:03:25 PM Referred By: REFERRED SELF Confirmed By:Anthony Greene
--- NOTE | 2022-04-28 14:02 | Anesthesiology Consultation ---
Date of Service April 28, 2022 Assessment & Plan (1) Encounter for pre-operative examination: History Surgery Operation Date: 04/28/22 12:55 Proposed Procedures p Right Reverse Fracture Total Shoulder Arthroplasty - Ishmael Kirkpatrick MD Height/Weight Height: 5 ft 4 in Weight: 93.6 kg Allergies Allergy/AdvReac Type Severity Reaction Status Date / Time iodine Allergy Mild Hives Verified 04/27/22 09:18 Sulfa (Sulfonamide Allergy Mild Hives Verified 04/27/22 09:18 Antibiotics) sulfamethoxazole Allergy Mild Hives Verified 04/27/22 09:18 [From Bactrim] trimethoprim [From Bactrim] Allergy Mild Hives Verified 04/27/22 09:18 povidone-iodine Allergy Unknown Hives Verified 04/27/22 11:36 [From Betadine] Medications Home Medications Medication Instructions Recorded Confirmed Last Taken albuterol sulfate 2.5 mg/3 mL 2.5 mg continuous nebulization Q6H 04/27/22 04/27/22 Unknown (0.083 %) solution for nebulization albuterol sulfate 90 mcg/actuation 2 inh inhalation Q6H 04/27/22 04/27/22 Unknown aerosol inhaler atenolol 25 mg tablet 25 mg PO QAM 04/27/22 04/27/22 Unknown benzonatate 100 mg capsule 100 mg PO BID PRN Cough 04/27/22 04/27/22 Unknown betamethasone valerate 0.1 % lotion 1 applic topical 2XWK PRN Dry Skin 04/27/22 04/27/22 Unknown brimonidine 0.2 % eye drops 1 drp OPR BID 04/27/22 04/27/22 Unknown ketoconazole 2 % shampoo 1 applic topical 2XWK PRN Dry Skin 04/27/22 04/27/22 Unknown metronidazole 0.75 % topical cream 1 applic topical BID 04/27/22 04/27/22 Unknown pantoprazole 40 mg tablet,delayed 40 mg PO DAILY 04/27/22 04/27/22 Unknown release triamterene 37.5 1 tab PO QAM 04/27/22 04/27/22 Unknown mg-hydrochlorothiazide 25 mg tablet Active Medications Generic Name Dose Route Start Last Admin Trade Name Freq PRN Reason Stop Dose Admin Acetaminophen 650 mg 04/27/22 17:00 04/28/22 13:11 Acetaminophen 325 Mg Tab PO 05/27/22 16:59 Not Given QID CHE Atenolol 25 mg 04/27/22 09:00 04/28/22 08:07 Atenolol 25 Mg Tablet PO 05/27/22 08:59 25 mg QAM CHE Administration Brimonidine Tartrate 1 drops 04/27/22 09:00 04/28/22 10:17 Brimonidine Tartrate-P 0.15% 5 Ml Btl OP 05/27/22 08:59 1 drops DAILY CHE Administration Hydromorphone HCl 1 mg 04/27/22 14:52 04/28/22 09:01 Hydromorphone Inj 0.5 Mg/0.5 Ml Syr IV 05/10/22 23:27 1 mg Q2H PRN Administration Severe Pain 7,8,9,10 Hydromorphone HCl 0.5 mg 04/27/22 14:52 04/28/22 12:29 Hydromorphone Inj 0.5 Mg/0.5 Ml Syr IV 05/10/22 23:27 0.5 mg Q4H PRN Administration Moderate Pain 4,5,6 Lidocaine 1 patch 04/27/22 09:00 04/28/22 08:07 Lidocaine 5% 1 Patch TD 05/27/22 08:59 Not Given QAM [facility] Miscellaneous 1 each 04/27/22 21:00 04/27/22 22:17 Remove Lidoderm Patch N/A 05/27/22 20:59 Not Given DAILY@2100 [facility] Oxycodone HCl 5 mg 04/27/22 16:48 04/28/22 08:06 Oxycodone Hcl Ir 5 Mg Tab (Immediate Release) PO 05/11/22 16:47 5 mg Q4H PRN Administration Pain Pantoprazole Sodium 40 mg 04/27/22 09:00 04/28/22 08:06 Pantoprazole 40 Mg Tab PO 05/27/22 08:59 40 mg QAM [facility] Administration Prednisolone Acetate 1 drops 04/27/22 21:00 04/27/22 23:17 Prednisolone Acetate 1% Op Susp 5 Ml Btl OPR 05/27/22 20:59 Not Given HS CHE Prednisolone Acetate 1 drops 04/27/22 09:00 04/28/22 10:28 Prednisolone Acetate 1% Op Susp 5 Ml Btl OPL 05/27/22 08:59 1 drops BID [facility] Administration Triamterene/Hydrochlorothiazide 1 tab 04/27/22 09:00 04/28/22 08:06 Triamterene/Hctz 37.5/25mg Tab PO 05/27/22 08:59 1 tab QAM CHE Administration NPO Date Last Intake of Fluids: 04/28/22 Time Last Intake of Fluids: 09:05 Date Last Intake of Solids: 04/27/22 Time Last Intake of Solids: 20:00 Past Medical History Medical History (Updated 04/28/22 @ 14:02 by Amie Hutton MD) GERD (gastroesophageal reflux disease) Hypertension Hypokalemia Shoulder fracture, right Tachycardia Past Surgical History Surgical History H/O: hysterectomy Social History Smoking Status: Never smoker Do You Dip or Chew Tobacco: No Hx Alcohol Use: Yes alcohol intake frequency: holidays/special occasions only Hx Substance Use: No Physical Exam Vital Signs Last Vital Signs Temp 37 C 04/28/22 13:33 Pulse 82 04/28/22 13:33 Resp 20 04/28/22 13:33 BP 133/78 04/28/22 13:33 Pulse Ox 90 04/28/22 13:33 O2 Del Method 04/28/22 13:33 Testing Laboratory Results 04/28/22 05:49 04/28/22 05:49 Blood Type B Positive 04/28/22 05:49 Antibody Screen NEGATIVE 04/28/22 05:49
[2022-04-28] MEDS ORDERED: MIDAZOLAM HCL 1 MG/ML 2ML VIAL ONE (14:52)
[2022-04-28] MEDS ORDERED: fentaNYL citrate 100 MCG/2 ML VIAL ONE (14:53)
[2022-04-28] MEDS ORDERED: LIDOCAINE 2% 20 MG/ML 5 ML SYR IV ONE (14:57)
[2022-04-28] MEDS ORDERED: ceFAZolin 2,000 MG/15 ML IV PUSH IV ONE (15:20)
--- NOTE | 2022-04-28 15:28 | History & Physical Bridge Note ---
Date of Service April 28, 2022 History & Physical Bridge Note I have examined the patient, reviewed the History & Physical and in the interval since the performance of the History & Physical I have noted the following changes of clinical significance: no changes noted
[2022-04-28] MEDS ORDERED: ceFAZolin 2000MG 2,000 MG/15 ML SYR IV SCH (15:45)
[2022-04-28] MEDS ORDERED: ePHEDrine sulfate 50 MG/ML AMP IV PRN ×2 (15:47→17:18)
[2022-04-28] MEDS ORDERED: ATROPINE SULFATE 0.1 MG/ML 10ML SYR IV PRN ×2 (15:47→17:18)
[2022-04-28] MEDS ORDERED: fentaNYL citrate 100 MCG/2 ML VIAL IV PRN (15:47)
[2022-04-28] MEDS ORDERED: ONDANSETRON INJ 2 MG/ML 2 ML VIAL IV PRN ×3 (15:47→20:42)
[2022-04-28] MEDS ORDERED: HYDROmorphone INJ 2 MG/ML SYR/VIAL IV PRN ×2 (15:47→17:18)
[2022-04-28] MEDS ORDERED: PROPOFOL IV EMULSION 10 MG/ML 20 ML VIAL IV ONE (16:39)
[2022-04-28] MEDS ORDERED: DEXAMETHASONE SOD INJ 4 MG/ML VIAL ONE (17:06)
[2022-04-28] MEDS ORDERED: ROCURONIUM BROMIDE 10 MG/ML 5 ML VIAL IV ONE (17:06)
[2022-04-28] MEDS ORDERED: ONDANSETRON INJ 2 MG/ML 2 ML VIAL ONE (17:06)
[2022-04-28] MEDS ORDERED: PROMETHAZINE HCL 12.5 MG in SODIUM CHLORIDE 0.9% 50 ML IV PRN (17:18)
[2022-04-28] MEDS ORDERED: PHENYLEPHRINE HCL 10 MG/ML VIAL ONE (18:02)
[2022-04-28] MEDS ORDERED: PHENYLEPHRINE 100MCG/ML 5ML SYR ONE (18:02)
[2022-04-28] MEDS ORDERED: GLYCOPYRROLATE 0.2 MG/ML VIAL ONE (18:56)
[2022-04-28] MEDS ORDERED: NEOSTIGMINE METHYLSULFATE 1 MG/ML 10ML VIAL ONE (18:56)
[2022-04-28] MEDS ORDERED: POTASSIUM CHLORIDE CRTAB 20 MEQ TABCR PO ONE (18:59)
--- NOTE | 2022-04-28 18:59 | Hospitalist Progress Note ---
Date of Service April 28, 2022 Assessment & Plan (1) Shoulder fracture, right: Plan: - s/p mechanical fall on Tuesday, per ED triage note, it is a displaced right proximal humerus fracture -Surgery today (2) Hypertension: Plan: - Continue triamterene/HCTZ. Blood pressures have been reasonable (3) Tachycardia: Plan: - has improved (4) GERD (gastroesophageal reflux disease): Plan: - Protonix daily. Plan - SCDs for vte ppx for now pending surgeryprobably add pharmacologic tomorrow - Full Code. -PT/OT eval and treat, comes from homehopefully will be able to return home at discharge Admission and Anticipated Discharge Date Admission Date: April 26, 2022 Subjective Went to evaluate patient around 1 PM. She had been taken down to the OR. Unable to round on patient despite multiple attempts through the day, including trying to find her in PACU around 6 PMstill in the OR at that time. Discussed with PACU nursesthey were unaware of any concerns or complications, rather just that her case was likely delayed Results & Data Results & Data ([facility]) Vital Signs (Past 12 Hours) Vital Signs Temp Pulse Pulse Resp BP Pulse Ox O2 Del Method 04/28/22 13:33 98.6 F 82 20 133/78 90 Room Air 04/28/22 11:23 99.0 F 83 18 157/82 H 92 Room Air 04/28/22 08:00 97 H 04/28/22 07:47 98.8 F 90 18 153/77 H 92 Room Air PG Care Time/CCT Total # of Minutes Spent Total Time Spent with Patient: Total time spent is greater than 50% in coordination of care (as documented) at patient's floor/unit and/or counseling patient: Coding Level of Care Code None Diagnoses Shoulder fracture, right S42.91XA Encounter type: initial encounter Fracture type: closed Hypertension I10 Tachycardia R00.0 GERD (gastroesophageal reflux disease) K21.9 (1) Shoulder fracture, right Encounter type: initial encounter Fracture type: closed Qualified Code(s): S42.91XA - Fracture of right shoulder girdle, part unspecified, initial encounter for closed fracture
--- NOTE | 2022-04-28 19:32 | Post Operative Brief Note ---
Immediate Post Op Note v1 Date of Surgery April 28, 2022 Pre & Post Diagnosis Operation Date: 04/28/22 12:55 Pre-Op Diagnosis: Right Shoulder comminuted proximal humerus fracture with anterior dislocation Post-Op Diagnosis: Right Shoulder comminuted proximal humerus fracture with anterior dislocation and posttraumatic biceps tendinopathy. I identified the patient and participated in the time-out.: Yes Procedure Operation Date: 04/28/22 12:55 Actual Procedures p Right fracture reversed total Shoulder Arthroplasty(Right) with repair and bone grafting of the tuberosities and biceps tenodesis.- Ishmael Kirkpatrick MD Surgeon Ishmael Kirkpatrick MD Shank Skinner Raudel [place] Estimated Blood Loss 100 Findings Consistent with Post-Op Diagnosis Specimens Humeral head fragment remnant Drains Hemovac Drain Anesthesia Type General Regional Complications none Disposition Disposition: Recovery Room Overlapping Procedure I was immediately available: during the entire case.
--- NOTE | 2022-04-28 19:48 | Operative Report ---
Post Operative Report Pre & Post Diagnosis Operation Date: 04/28/22 12:55 Pre-Op Diagnosis: Right Shoulder comminuted proximal humerus fracture with anterior dislocation. Post-Op Diagnosis: Right Shoulder comminuted proximal humerus fracture with anterior dislocation a nd posttraumatic biceps tendinopathy. I identified the patient and participated in the time-out.: Yes Procedure Operation Date: 04/28/22 12:55 Actual Procedures p Right fracture reversed total Shoulder Arthroplasty(Right) with biceps tenodesis and repair of the tuberosity fracture fragments and bone grafting of the fracture fragments.- Ishmael Kirkpatrick MD Surgeon Ishmael Kirkpatrick MD Clinical Psychology Teacher Raudel JOHNSTON Estimated Blood Loss 100 Findings Consistent with Post-Op Diagnosis Specimens Humeral head remnants Drains 2 Hemovac Anesthesia Type General Regional Complications none Disposition Disposition: Recovery Room Indications 61-year-old female who fell off a step stool injured her right shoulder and s ustained a anterior fracture dislocation of her shoulder with a comminuted proximal humerus fracture. Shoulder was not reduced and she was referred to us for definitive treatment. CT scan verified a very comminuted fracture dislocation with fracture of the humeral head right at the articular margin and some head splitting type fracture. Posterior tuberosities are comminuted and the lesser tuberosity is fractured off as well. Description of Procedure Patient was taken to the operating room anesthetized under regional block and general anesthetic. Patient was placed in the beachchair position. A towel roll was placed under the medial border of the right scapula. The head was placed on a foam headrest. Protective eyewear was placed. SCDs were placed. All extremities were well-padded. Shoulder exam demonstrated swollen upper arm with old ecchymosis and no open wounds no blisters. The shoulder was sterilely prepped and draped in usual sterile fashion with ChloraPrep. An anterior deltopectoral approach was performed. The skin was incised sharply in longitudinal fashion. Subcutaneous flaps were elevated. The deltopectoral int erval was identified. The cephalic vein was still intact. 2 crossing veins were tied off with silk ties and divided. The deltopectoral interval was developed. The conjoined tendon was identified and retracted medially. The clavipectoral fascia was divided at the lateral margin the conjoined tendon. The upper 1 cm of the pectoralis was released for inferior exposure. The biceps tendon findings demonstrated hemorrhage and widening of the biceps where it was draped over the fracture site with posttraumatic tendinopathy.. Biceps tendon was sutured to the pectoralis tendon tenodesis and get to the pectoralis tendon using [id number] #2 FiberWire sutures. Biceps tendon was divided proximal to the tenodesis. The fracture pattern demonstrated comminuted fracture with fairly large fragment that could be keyed into a V shaped spike in the shaft which was attached to the teres minor and 2 other comminuted fragments attached to the infraspinatus and supraspinatus. A lateral head split fracture fragment. A smaller fragment which made up the bicipital groove and then medial to that was a comminuted subscapularis fragment with intact tendon attached to the fragment there. The humeral head was dislocated anteriorly to the glenoid and a pouch and there was a large Bankart lesion with the labrum displaced anteriorly with a capsule.. Vicryl sutures were placed into the subscapularis tendon and the supraspinatus and infraspinatus tendons to control the tuberosity fractures. The humeral head fragment was removed. Debris was irrigated out of the glenohumeral joint. The glenoid findings demonstrated a very petite glenoid with intact articular cartilage and the Bankart lesion anteriorly inferiorly noted.. The Tornier reverse total shoulder replacement was utilized with the Tornier fracture stem. Glenoid exposure performed removing the labrum and biceps tendon and performing anterior-inferior and posterior capsule release and triceps tendon release. Dissection was performed on bone to protect the axillary nerve. Retractors were placed to expose the glenoid. Any remaining cartilage on the glenoid was removed with a curette. The glenoid was sized for a 25 millimeter baseplate. The guide for the aequalis baseplate was positioned and central drill hole was made. The reamer was used. The bone quality was very good. The central drill hole was widened for the post. The glenoid was irrigated with pulsatile lavage saline solution. The 25 millimeter aequalis hydroxyapatite-coated baseplate was impacted into position with excellent fit. This was transfixed with superior and inferior locking screws and anterior posterior compression screws. The fan reamer was used and the glenoid implant was irrigated and dried and then the 36 x 25 glenoid sphere was impacted onto the baseplate and the security screw tightened. This was checked for stability and was intact and stable. Attention taken to the humerus. Humeral canal was reamed and size 7 millimeters stem was chosen. Height of the implant when impacted was documented and rotation was placed with the rotational rebecca in line with the forearm. Trial reduction demonstrated that a size +6 reversed trial polyethylene insert gave stability and no shuck. The trial was removed and the canal was irrigated with pulsatile lavage saline solution. Four #5 FiberWire sutures were first passed around the posterior greater tuberosity fragments. Two #5 FiberWire sutures were placed through drill holes into the shaft and docked for later tying. The cement restrictor was placed at the appropriate depth in the canal of the humerus. Bone graft was harvested from the humeral head and the bone graft inserted into the hole in the humeral implant. The submillimeter reverse fracture stem implant with a 130 mm length aequalis fracture stem humeral implant was cemented into position with Palacos G cement. After the cement cured the 36, +6 reversed polyethylene insert was impacted into the humeral implant. 4 tails of the suture were passed around the implant prior to reducing it to the glenoid sphere. The tuberosities posteriorly were then sutured to the stem after placing bone graft between the hydroxyapatite portion of the stem the shaft and the tuberosity fragments. The arm was rotated and the posterior tuberosities were secured with rotation. Sutures were then passed around the lesser tuberosity fragments through the subscap tendon and then bone graft was placed underlying these fragments and the humeral implant and the shaft area. The other two #5 FiberWire sutures were tied around the lesser tuberosity fragment suturing that to the shaft and the lesser to the greater tuberosity fragments together. The Vicryl sutures were tied to each other for added security. The shaft sutures were placed in [id number] fashion around the tuberosity fracture fragments anteriorly and posteriorly to secure the tuberosity fracture fragments to the shaft. The repair was stable with passive range of motion and range of motion was 145 degrees forward flexion 100 degrees abduction 45 degrees external rotation with the arm to side and 75 degrees external rotation with the arm at 90 degrees without any tension on repair. The pectoralis tendon was repaired with [id number] #2 FiberWire sutures. The sutures were passed through the biceps tendon to reinforce the biceps tenodesis. After further saline irrigation 2 Hemovac drains were brought out laterally. The deltopectoral interval was repaired with [id number] #1 Vicryl sutures. The subcutaneous tissue closed into 2-0 Vicryl sutures. Skin was closed with mynor. Sterile dressings were applied and a shoulder immobilizer. Raudel JOHNSTON was my medical assistant dermatology and assisted throughout the procedure including prepping draping arm positioning soft tissue retraction suture management wound closure and postop care the patient. I attest to the content of the Intraoperative Record and any orders documented therein. Any exceptions are noted below.
--- NOTE | 2022-04-28 20:25 | XRay Report ---
XR shoulder RT min 2V routine HISTORY: 61 years-old Female Post shoulder surgery right shoulder arthroplasty COMPARISON: Shoulder radiographs 04/26/2022 TECHNIQUE: 2 views of the right shoulder FINDINGS: Reverse right shoulder total joint arthroplasty. Overlying skin mynor are noted along with expected postoperative soft tissue swelling with deep tissue air and skin mynor. No acute fracture or unexp ected foreign body identified. IMPRESSION: Reverse right shoulder total joint arthroplasty with expected postoperative changes. ACT 112: Negative or not required by law. The above report was generated using voice recognition software. It may contain grammatical, syntax o r spelling errors. Electronically signed by: Joe Jacobo M.D. 04/28/2022 8:24 PM
[2022-04-28] MEDS ORDERED: bisacodyL 10 MG SUPP PR PRN (20:42)
[2022-04-28] MEDS ORDERED: NALOXONE HCL 0.4 MG/1 ML VIAL/CARP IV PRN (20:42)
[2022-04-28] MEDS ORDERED: SODIUM CHLORIDE 0.9% 1000ML 1,000 ML IV SCH (20:42)
[2022-04-28] MEDS ORDERED: MAGNESIUM HYDROXIDE SUSP 30 ML UDC PO PRN (20:42)
[2022-04-28] MEDS ORDERED: METOCLOPRAMIDE HCL INJ 5 MG/ML 2 ML VIAL IV PRN (20:42)
--- NOTE | 2022-04-28 20:52 | Anesthesiology Progress Note ---
Date of Service April 28, 2022 Anesthesia Post Procedure Vital Signs Vital Signs: Temp Pulse Pulse Pulse Resp BP Pulse Ox 04/28/22 20:39 37.1 C 74 17 112/72 94 04/28/22 20:20 36.8 C 85 19 116/67 94 04/28/22 20:10 73 13 122/67 94 04/28/22 20:00 78 17 124/87 95 04/28/22 19:50 36.0 C L 75 16 108/66 93 04/28/22 13:33 37 C 82 20 133/78 90 04/28/22 11:23 37.2 C 83 18 157/82 H 92 04/28/22 08:00 97 H 04/28/22 07:47 37.1 C 90 18 153/77 H 92 04/28/22 04:55 37.1 C 82 18 104/65 93 04/28/22 01:08 04/27/22 23:28 37.1 C 82 19 124/71 94 Pulse Ox O2 Del Method O2 Del Method O2 Flow Rate 04/28/22 20:39 Nasal Cannula 3 04/28/22 20:20 Nasal Cannula 3 04/28/22 20:10 Nasal Cannula 3 04/28/22 20:00 Oxymask 10 04/28/22 19:50 Oxymask 10 04/28/22 13:33 Room Air 04/28/22 11:23 Room Air 04/28/22 08:00 04/28/22 07:47 Room Air 04/28/22 04:55 Room Air 04/28/22 01:08 92 Room Air 04/27/22 23:28 Room Air Pain Intensity Right Shoulder: Pain Intensity: 5 Transfer of Care Handoff Completed per policy Notes Mental Status: alert / awake / arousable and participated in evaluation Patient Amnestic to Procedure: Yes Nausea / Vomiting: adequately controlled Pain: adequately controlled Airway Patency, RR, SpO2: stable & adequate BP & HR: stable & adequate Hydration State: stable & adequate Anesthetic Complications: no major complications apparent
[2022-04-28] MEDS: DOCUSATE SODIUM 100 MG CAP PO SCH (21:14)
[2022-04-28] MEDS: ACETAMINOPHEN 500 MG TAB PO SCH (21:15)
[2022-04-28] MEDS: SENNA 8.6 MG TAB PO SCH (21:15)
[2022-04-28] MEDS: prednisoLONE acetate 1% OP SUSP 5 ML BTL OPR SCH (21:16)
[2022-04-28] MEDS: ceFAZolin 2000MG 2,000 MG/15 ML SYR IV SCH (23:04)
[2022-04-29] MEDS: ACETAMINOPHEN 500 MG TAB PO SCH ×3 (05:16→22:27)
--- NOTE | 2022-04-29 07:39 | Orthopedic Progress Note ---
Date of Service April 29, 2022 Assessment & Plan (1) S/p reverse total shoulder arthroplasty: Plan: POD#1 Right reverse TSA for fracture -PT/OT: No formal PT at this time. May do elbow/wrist/hand motion, shrugs, pendulums -AM labs pending -DVT prophylaxis-SCDs, aspirin 81mg BID -pain management at written -D/C planning: Plan on discharge home. Patient is orthopedically stable for discharge as long as her pain continues to be well controlled. She can follow-u p with our clinic 12 to 14 days postoperatively. If an appointment is not already scheduled she can call [phone] for an appointment. Admission and Anticipated Discharge Date Admission Date: April 26, 2022 Subjective Patient resting comfortably. Easily awoken. No current pain. No other complaints. Denies chest pain, shortness of breath, dizziness, nausea/vomiting/diarrhea. Review of Systems Review of Systems: All systems reviewed & are unremarkable except as noted in Subjective Physical Exam Physical Exam: Right shoulder: Dressing is clean, dry, intact. Sling in place. Fingers are mobile. Still some numbness distally likely residual from the nerve block. Able to do thumbs up and extend her wrist. Distal pulses palpable Constitutional: WD/WN, vitals as above Results & Data ([facility]) Vital Signs (Past 12 Hours) Vital Signs Temp Pulse Pulse Pulse Resp BP Pulse Ox 04/28/22 22:04 76 04/28/22 20:56 83 04/29/22 03:08 36.8 C 73 16 108/68 93 04/28/22 21:15 04/29/22 00:41 37.1 C 77 16 106/67 94 04/28/22 22:28 36.9 C 76 16 117/71 95 04/28/22 21:17 36.9 C 77 17 109/69 91 04/28/22 20:39 37.1 C 74 17 112/72 94 04/28/22 20:20 36.8 C 85 19 116/67 94 04/28/22 20:10 73 13 122/67 94 04/28/22 20:00 78 17 124/87 95 04/28/22 19:50 36.0 C L 75 16 108/66 93 O2 Del Method O2 Flow Rate 04/28/22 22:04 04/28/22 20:56 04/29/22 03:08 Nasal Cannula 4 04/28/22 21:15 Nasal Cannula 4 04/29/22 00:41 Room Air 04/28/22 22:28 Nasal Cannula 4 04/28/22 21:17 Nasal Cannula 4 04/28/22 20:39 Nasal Cannula 3 04/28/22 20:20 Nasal Cannula 3 04/28/22 20:10 Nasal Cannula 3 04/28/22 20:00 Oxymask 10 04/28/22 19:50 Oxymask 10
[2022-04-29 08:10] LABS: Eosinophils # (auto) 0.01 K/uL (0-0.50); Eosinophils % (auto) 0.1 %; Hematocrit (blood only) 25.3 % (34.1-44.9); Hemoglobin 8.4 g/dl (12.0-16.0); Immature Granulocytes # (auto) 0.03 K/uL (0.00-0.02); Immature Granulocytes % (auto) 0.3 %; Lymphocytes # (auto) 1.77 K/uL (1.2-3.4); Lymphocytes % (auto) 20.1 %; Mean Corpuscular Hemoglobin 28.7 pg (25.0-34.0); Mean Corpuscular Hgb Conc 33.2 g/dL (32.0-36.0); Mean Corpuscular Volume 86.3 fL (80.0-100.0); Mean Platelet Volume 10.8 fL (9.4-12.3); Monocytes # (auto) 0.85 K/uL (0.24-0.82); Monocytes % (auto) 9.6 %; Neutrophils # (auto) 6.15 K/uL (1.4-6.5); Neutrophils % (auto) 69.9 %; Platelet Count 167 K/uL (130-400); RDW Coefficient of Variation 12.7 % (11.5-14.5); RDW Standard Deviation 40.1 fL (36.4-46.3); Red Blood Count 2.93 M/uL (3.93-5.22); White Blood Count 8.81 K/ul (4.8-10.8)
[2022-04-29] MEDS: ceFAZolin 2000MG 2,000 MG/15 ML SYR IV SCH (08:10)
[2022-04-29] MEDS: LIDOCAINE 5% 1 PATCH TD SCH (08:10)
[2022-04-29] MEDS: BRIMONIDINE TARTRATE-P 0.15% 5 ML BTL OP SCH ×2 (08:11→22:30)
[2022-04-29] MEDS: ATENOLOL 25 MG TABLET PO SCH (08:11)
[2022-04-29] MEDS: DOCUSATE SODIUM 100 MG CAP PO SCH ×2 (08:11→22:30)
[2022-04-29] MEDS: MULTIVITAMIN TAB PO SCH (08:11)
[2022-04-29] MEDS: TRIAMTERENE/HCTZ 37.5/25MG TAB PO SCH (08:11)
[2022-04-29] MEDS: PANTOprazole 40 MG TAB PO SCH (08:11)
[2022-04-29] MEDS: prednisoLONE acetate 1% OP SUSP 5 ML BTL OPL SCH ×2 (08:12→22:33)
[2022-04-29] MEDS: oxyCODONE HCL IR 5 MG TAB (IMMEDIATE RELEASE) PO PRN ×3 (08:26→18:23)
[2022-04-29 08:40] LABS: Calcium 7.8 mg/dl (8.5-10.1); Est GFR (African American) 67.3 ml/min; Est GFR (Non-African American) 58.1 ml/min; Potassium 4.1 mmol/L (3.5-5.1)
[2022-04-29] MEDS: ASPIRIN 81 MG ECTAB PO SCH ×2 (08:45→22:28)
[2022-04-29] MEDS: HYDROmorphone INJ 0.5 MG/0.5 ML SYR IV PRN ×5 (11:20→23:50)
[2022-04-29] MEDS ORDERED: HYDROmorphone INJ 0.5 MG/0.5 ML SYR IV STA (13:11)
--- NOTE | 2022-04-29 13:15 | Hospitalist Progress Note ---
Date of Service April 29, 2022 Assessment & Plan (1) Shoulder fracture, right: Plan: - s/p mechanical fall on Tuesday; it is a displaced right proximal humerus fracture now s/p reverse TSA right post-op care as per Ortho -having issues with pain control-give an extra IV dilaudid 0.5mg IV x 1 now, continue oxycodone prn, icing, APAP scheduled -constipation-add on daily Miralax, continue senna/docusate daily -continue ASA 81mg po bid for DVT proph (2) Acute respiratory failure with hypoxia: Plan: requiring 4LNC still today CXR as per my read with elevated Right fina-diaphragm, suspect possibly due to nerve block from shoulder surgery but no old CXR to compare to -should improve with time -wean off supplemental O2 as able to keep POX>92% -follow CXR in AM -encouraged ICS q1 hour (3) Acute blood loss anemia: Plan: hgb dwn to 8.4 from 10.1 preop from blood loss from fracture and surgery drain in place with bloody drainage follow CBC in AM no transfusion needed, HD stable (4) Hypertension: Plan: - Continue triamterene/HCTZ. Blood pressures have been reasonable does have hyponatremia and hypokalemia likely from diuretic use although is improving-follow BMP in AM (5) Tachycardia: Plan: - has improved continue atenolol can transfer off tele (6) GERD (gastroesophageal reflux disease): Plan: no acute issues -continue Protonix daily. (7) S/p reverse total shoulder arthroplasty: Plan: as above Plan DVT porph-SCDs, ASA bid Dispo-continued stay for hypoxia, pain control, then expect dc to home hopefully tomorrow if both are improved downgrade to med/surg Admission and Anticipated Discharge Date Admission Date: April 26, 2022 Subjective Still having severe right shoulder pain this afternoon despite IV dilaudid and po oxycodone no BM since amdission, no flatus, is eating, no nausea, no abd pain No CP. Does have COCHRAN and still requiring O2 supplemental is using ICS Tele with NSR rates 70s Review of Systems Review of Systems: All systems reviewed & are unremarkable except as noted in HPI & below Physical Exam Constitutional: WD/WN, vitals as above Eyes: + anicteric sclerae ENMT: external ear and nose normal, oropharynx normal Neck: trachea midline, no thyromegaly Respiratory: normal respiratory effort, lungs clear to auscultation (except diminished BS at right base) Cardiovascular: RRR, no murmur, no edema Chest (Breasts): Chest: normal inspection of chest Gastrointestinal (Abdomen): normal bowel sounds, soft, nontender, no hepatosplenomegaly Musculoskeletal: Extremities: + extremities abnormal to inspection (RUE in sling,dressing in place,drain with bloody drainage), no cyanosis and no clubbing can move right fingers, sensation intact, good cap refill right fingers Skin: no rashes, warm and dry Neurologic: moves all extremities and awake; no focal motor deficits Psychiatric: A+Ox3, euthymic affect Lymphatic: no lymphedema Results & Data Results & Data ([facility]) Vital Signs (Past 12 Hours) Vital Signs Temp Pulse Pulse Pulse Resp BP Pulse Ox 04/29/22 12:36 37.1 C 76 18 106/66 92 04/29/22 08:00 04/29/22 08:06 36.7 C 74 16 118/73 95 04/29/22 07:43 79 04/29/22 03:08 36.8 C 73 16 108/68 93 O2 Del Method O2 Flow Rate 04/29/22 12:36 Nasal Cannula 2 04/29/22 08:00 Nasal Cannula 4 04/29/22 08:06 Nasal Cannula 4 04/29/22 07:43 04/29/22 03:08 Nasal Cannula 4 Laboratory Results 04/29/22 07:46 04/29/22 07:46 Diagnostic Findings CXR personally reviewed by me, no Rad report in yet-with elevated right fina diaphragm, no PNA PG Care Time/CCT Total # of Minutes Spent Total Time Spent with Patient: Total time spent is greater than 50% in coordination of care (as documented) at patient's floor/unit and/or counseling patient: Coding Level of Care Code 23482 Subseq Hosp Care Lvl 3 Diagnoses Shoulder fracture, right S42.91XA Encounter type: initial encounter Fracture type: closed Acute respiratory failure with hypoxia J96.01 Acute blood loss anemia D62 Hypertension I10 Tachycardia R00.0 GERD (gastroesophageal reflux disease) K21.9 S/p reverse total shoulder arthroplasty Z96.619 (1) Shoulder fracture, right Encounter type: initial encounter Fracture type: closed Qualified Code(s): S42.91XA - Fracture of right shoulder girdle, part unspecified, initial encounter for closed fracture
[2022-04-29] MEDS: POLYETHYLENE (MIRALAX) 17 GM PACK PO SCH (13:23)
--- NOTE | 2022-04-29 15:26 | XRay Report ---
XR chest 1V portable HISTORY: hypoxia,post-op shoulder arthroplasty COMPARISON: None. FINDINGS: Status post recent right total shoulder arthroplasty. No pneumothorax. No pleural effusions . There is mild elevation the right hemidiaphragm with right basilar densities. The heart is borderli ne enlarged. No evidence for pulmonary edema. IMPRESSION: 1. Mild elevation of the right hemidiaphragm with right basilar densities. This favors atelectasis. A pneumonia could also have a similar appearance in the appropriate clinical setting. 2. Mild cardiomegaly. ACT 112: Negative or not required by law. Electronically signed by: Sourav Flynn M.D. 04/29/2022 3:25 PM
[2022-04-29] MEDS: ALBUTEROL HFA 8 GM INHALER INH SCH (17:43)
[2022-04-29] MEDS: SENNA 8.6 MG TAB PO SCH (22:29)
[2022-04-29] MEDS: prednisoLONE acetate 1% OP SUSP 5 ML BTL OPR SCH (22:32)
[2022-04-30] MEDS: ALBUTEROL HFA 8 GM INHALER INH SCH ×4 (00:26→19:38)
[2022-04-30] MEDS: oxyCODONE HCL IR 5 MG TAB (IMMEDIATE RELEASE) PO PRN ×4 (04:04→20:10)
[2022-04-30] MEDS: ACETAMINOPHEN 500 MG TAB PO SCH ×3 (05:39→21:30)
[2022-04-30 07:16] LABS: Basophils # (auto) 0.02 K/uL (0-0.2); Basophils % (auto) 0.2 %; Eosinophils # (auto) 0.08 K/uL (0-0.50); Eosinophils % (auto) 0.9 %; Hematocrit (blood only) 27.2 % (34.1-44.9); Immature Granulocytes # (auto) 0.04 K/uL (0.00-0.02); Immature Granulocytes % (auto) 0.4 %; Lymphocytes # (auto) 1.83 K/uL (1.2-3.4); Lymphocytes % (auto) 19.6 %; Mean Corpuscular Hemoglobin 28.6 pg (25.0-34.0); Mean Corpuscular Hgb Conc 33.1 g/dL (32.0-36.0); Mean Corpuscular Volume 86.3 fL (80.0-100.0); Mean Platelet Volume 10.8 fL (9.4-12.3); Monocytes # (auto) 1.03 K/uL (0.24-0.82); Monocytes % (auto) 11.1 %; Neutrophils # (auto) 6.32 K/uL (1.4-6.5); Neutrophils % (auto) 67.8 %; Platelet Count 194 K/uL (130-400); RDW Coefficient of Variation 12.8 % (11.5-14.5); RDW Standard Deviation 40.1 fL (36.4-46.3); Red Blood Count 3.15 M/uL (3.93-5.22); White Blood Count 9.32 K/ul (4.8-10.8)
--- NOTE | 2022-04-30 07:40 | Orthopedic Progress Note ---
Date of Service April 30, 2022 Assessment & Plan (1) S/p reverse total shoulder arthroplasty: Plan: POD#2 Right reverse TSA for fracture -PT/OT: No formal PT at this time. May do elbow/wrist/hand motion, shrugs, pendulums -DVT prophylaxis-SCDs, aspirin 81mg BID -pain management at written -AM labs: Hemoglobin at 9 this morning acute blood loss anemia due to surgical loss versus dilutional. -D/C planning: Plan on discharge home. Patient is orthopedically stable for discharge as long as her pain continues to be well controlled. She can follow- up with our clinic 12 to 14 days postoperatively. If an appointment is not already scheduled she can call [phone] for an appointment. Orthopedics will sign off at this time. Call with any questions or concerns. Admission and Anticipated Discharge Date Admission Date: April 26, 2022 Subjective Patient is sitting up in bed. Just returned from the restroom. Pain is better controlled this morning. Apparently she is having a lot of increased pain yesterday and was having difficulty getting ahead of the pain. Her Dilaudid was increased. No other complaints. Review of Systems Review of Systems: All systems reviewed & are unremarkable except as noted in Subjective Physical Exam Physical Exam: Right shoulder: Dressing is clean, dry, intact. Sling in place. Fingers are mobile. Still some numbness distally likely residual from the nerve block which is improving. Able to do thumbs up and extend her wrist. Distal pulses palpable Constitutional: WD/WN, vitals as above Results & Data ([facility]) Vital Signs (Past 12 Hours) Vital Signs Temp Pulse Pulse Resp BP Pulse Ox O2 Del Method 04/30/22 05:10 85 94 Nasal Cannula 04/29/22 22:00 37 C 85 20 123/71 92 Room Air 04/29/22 20:00 37.1 C 79 20 123/71 93 Nasal Cannula 04/29/22 19:45 Nasal Cannula O2 Flow Rate 04/30/22 05:10 2 04/29/22 22:00 04/29/22 20:00 2 04/29/22 19:45 2
[2022-04-30 07:43] LABS: BUN Creatinine Ratio 19.2 (10-20); Calcium 8.2 mg/dl (8.5-10.1); Creatinine Clr Calc Pharmacy 68.1 ml/min; Est GFR (African American) 72.3 ml/min; Est GFR (Non-African American) 62.4 ml/min; Potassium 3.7 mmol/L (3.5-5.1)
[2022-04-30] MEDS: DOCUSATE SODIUM 100 MG CAP PO SCH ×2 (08:32→20:12)
[2022-04-30] MEDS: TRIAMTERENE/HCTZ 37.5/25MG TAB PO SCH (08:32)
[2022-04-30] MEDS: PANTOprazole 40 MG TAB PO SCH (08:32)
[2022-04-30] MEDS: ATENOLOL 25 MG TABLET PO SCH (08:33)
[2022-04-30] MEDS: ASPIRIN 81 MG ECTAB PO SCH ×2 (08:33→20:12)
[2022-04-30] MEDS: MULTIVITAMIN TAB PO SCH (08:33)
[2022-04-30] MEDS: prednisoLONE acetate 1% OP SUSP 5 ML BTL OPL SCH ×2 (08:34→20:14)
[2022-04-30] MEDS: POLYETHYLENE (MIRALAX) 17 GM PACK PO SCH ×3 (08:34→20:14)
[2022-04-30] MEDS: BRIMONIDINE TARTRATE-P 0.15% 5 ML BTL OP SCH ×2 (08:34→20:14)
[2022-04-30] MEDS: LIDOCAINE 5% 1 PATCH TD SCH (08:38)
[2022-04-30] MEDS: HYDROmorphone INJ 0.5 MG/0.5 ML SYR IV PRN (10:45)
--- NOTE | 2022-04-30 11:23 | XRay Report ---
SINGLE VIEW CHEST CLINICAL HISTORY: Hypoxia. FINDINGS: An AP, portable, upright chest radiograph is compared to study dated 04/29/2022. The cardiom ediastinal silhouette is top normal for projection. There is mild elevation the right hemidiaphragm a nd bibasilar atelectasis. No airspace consolidation or large pleural effusion is identified there No pneumothorax is seen. The bony thorax is grossly intact. A right shoulder arthroplasty is in place. S kin clips project over the right shoulder. IMPRESSION: No active disease in the chest. Bibasilar atelectasis has improved from yesterday. ACT 112: Negative or not required by law. Electronically signed by: Jeremiah Goode M.D. 04/30/2022 11:21 AM
--- NOTE | 2022-04-30 14:51 | Hospitalist Progress Note ---
Date of Service April 30, 2022 Assessment & Plan (1) Shoulder fracture, right: Plan: - s/p mechanical fall prior to admission and suffered a displaced right proximal humerus fracture now s/p reverse TSA right on 04/[address] Kirkpatrick post-op care as per Ortho-of note, drain still in place-question if needs to be removed prior to discharge? -having issues with pain control-continue oxycodone 10 mg p.o. every 4 hours prn, IV Dilaudid as needed for severe breakthrough pain, continue icing, APAP scheduled 1000 mg p.o. every 8 hours -constipation-finally with bowel movement on 04/30 after adding daily Miralax, senna/docusate daily -continue ASA 81mg po bid for DVT proph -Will need follow-up with orthopedic surgery 12-14 days postoperatively -May do elbow/wrist/hand motion, shrugs, pendulums (2) Acute respiratory failure with hypoxia: Plan: Was requiring 4LNC on postop day #1 CXR as per my read with elevated Right fina-diaphragm, suspect possibly due to nerve block from shoulder surgery but no old CXR to compare to -Now weaned off oxygen to room air on 04/30, but pulse ox 90-91% -Repeat chest x-ray on 04/30 shows improvement in atelectasis and improvement in elevated right hemidiaphragm -should continue to improve with time, incentive spirometry, and mobilization out of bed -Encouraged her to get out of bed to chair and ambulate more -encouraged ICS q1 hour (3) Hyponatremia: Plan: Sodium decreased further to 133 today since stopping IV fluids Suspect this as well as previous hypokalemia is secondary to HCTZ-will discontinue HCTZ/triamterene If needs further blood pressure control, could increase atenolol dose or add on ANTHONY inhibitor -Follow BMP in the morning (4) Acute blood loss anemia: Plan: hgb dwn to 8.4 from 10.1 preop from blood loss from fracture and surgery Hemoglobin up slightly today to 9.[address] with small amount bloody drainage follow CBC again in AM no transfusion needed, HD stable (5) Hypertension: Plan: Discontinue triamterene/HCTZ as above for hyponatremia and hypokalemia Continue atenolol and consider increasing dose of atenolol versus adding on ANTHONY inhibitor if blood pressures elevate (6) Tachycardia: Plan: - has improved continue atenolol Has since been discontinued off telemetry monitoring (7) GERD (gastroesophageal reflux disease): Plan: no acute issues -continue Protonix daily. (8) S/p reverse total shoulder arthroplasty: Plan: as above Plan DVT proph-SCDs, ASA bid Dispo-continued stay for pain control, then expect dc to home hopefully tomorrow if improved and remains without hypoxia Admission and Anticipated Discharge Date Admission Date: April 26, 2022 Subjective Patient still having significant pain requiring IV Dilaudid but knows that she needs to try the oral pain medicines first. She did have a bowel movement final ly this afternoon. She was weaned off oxygen to room air. Still has some dyspnea with exertion that is mild. Has some occasional tightness under the ribs on the right side. Review of Systems Review of Systems: All systems reviewed & are unremarkable except as noted in HPI & below Physical Exam Constitutional: WD/WN, vitals as above Eyes: + anicteric sclerae Neck: trachea midline, no thyromegaly Respiratory: normal respiratory effort, lungs clear to auscultation (Improved aeration at right base) Cardiovascular: RRR, no murmur, no edema Chest (Breasts): Chest: normal inspection of chest Gastrointestinal (Abdomen): normal bowel sounds, soft, nontender, no hepatosplenomegaly Musculoskeletal: Extremities: + extremities abnormal to inspection (RUE in sling,dressing in place,drain with bloody drainage), no cyanosis and no clubbing Skin: no rashes, warm and dry Neurologic: moves all extremities and awake; no focal motor deficits Psychiatric: A+Ox3, euthymic affect Lymphatic: no lymphedema Results & Data Results & Data ([facility]) Vital Signs (Past 12 Hours) Vital Signs Temp Pulse Pulse Resp BP Pulse Ox O2 Del Method 04/30/22 13:40 100 H 20 91 Room Air 04/30/22 07:48 36.9 C 77 18 125/73 96 Room Air 04/30/22 05:10 85 94 Nasal Cannula O2 Flow Rate 04/30/22 13:40 04/30/22 07:48 04/30/22 05:10 2 Laboratory Results 04/30/22 04/30/22 Range/Units 06:30 06:30 WBC 9.32 (4.8-10.8) K/ul RBC 3.15 L (3.93-5.22) M/uL Hgb 9.0 L (12.0-16.0) g/dl Hct 27.2 L (34.1-44.9) % MCV 86.3 (80.0-100.0) fL MCH 28.6 (25.0-34.0) pg MCHC 33.1 (32.0-36.0) g/dL RDW Std Deviation 40.1 (36.4-46.3) fL RDW Coeff of Dave 12.8 (11.5-14.5) % Plt Count 194 (130-400) K/uL MPV 10.8 (9.4-12.3) fL Immature Gran % (Auto) 0.4 % Neut % (Auto) 67.8 % Lymph % (Auto) 19.6 % [place] % (Auto) 11.1 % Eos % (Auto) 0.9 % Baso % (Auto) 0.2 % Neut # (Auto) 6.32 (1.4-6.5) K/uL Lymph # (Auto) 1.83 (1.2-3.4) K/uL [place] # (Auto) 1.03 H (0.24-0.82) K/uL Eos # (Auto) 0.08 (0-0.50) K/uL Baso # (Auto) 0.02 (0-0.2) K/uL Immature Gran # (Auto) 0.04 H (0.00-0.02) K/uL Sodium 133 L (136-145) mmol/L Potassium 3.7 (3.5-5.1) mmol/L Chloride 97 L (98-107) mmol/L Carbon Dioxide 30 (21-32) mmol/L Anion Gap 6 (3-11) BUN 19 (6-23) mg/dl Creatinine 0.99 (0.6-1.2) mg/dl Est Cr Clr Drug Dosing 68.1 ml/min Est GFR ( Amer) 72.3 ml/min Est GFR (Non-Af Amer) 62.4 ml/min BUN/Creatinine Ratio 19.2 (10-20) Glucose 136 H (70-99(Fasting)) mg/dl Calcium 8.2 L (8.5-10.1) mg/dl Magnesium 2.0 (1.7-2.4) mg/dl PG Care Time/CCT Total # of Minutes Spent Total Time Spent with Patient: Total time spent is greater than 50% in coordination of care (as documented) at patient's floor/unit and/or counseling patient: Coding Level of Care Code 32371 Subseq Hosp Care Lvl 2 Diagnoses Shoulder fracture, right S42.91XA Encounter type: initial encounter Fracture type: closed Acute respiratory failure with hypoxia J96.01 Hyponatremia E87.1 Acute blood loss anemia D62 Hypertension I10 Tachycardia R00.0 GERD (gastroesophageal reflux disease) K21.9 S/p reverse total shoulder arthroplasty Z96.619 (1) Shoulder fracture, right Encounter type: initial encounter Fracture type: closed Qualified Code(s): S42.91XA - Fracture of right shoulder girdle, part unspecified, initial encounter for closed fracture
[2022-04-30] MEDS: prednisoLONE acetate 1% OP SUSP 5 ML BTL OPR SCH (20:13)
[2022-04-30] MEDS: SENNA 8.6 MG TAB PO SCH (20:14)
[2022-05-01] MEDS: ALBUTEROL HFA 8 GM INHALER INH SCH ×4 (00:28→19:47)
[2022-05-01] MEDS: oxyCODONE HCL IR 5 MG TAB (IMMEDIATE RELEASE) PO PRN ×3 (00:48→10:30)
[2022-05-01] MEDS: HYDROmorphone INJ 0.5 MG/0.5 ML SYR IV PRN ×2 (03:06→12:38)
[2022-05-01] MEDS: ACETAMINOPHEN 500 MG TAB PO SCH ×3 (05:15→22:55)
[2022-05-01 06:24] LABS: Basophils # (auto) 0.02 K/uL (0-0.2); Basophils % (auto) 0.2 %; Eosinophils # (auto) 0.18 K/uL (0-0.50); Eosinophils % (auto) 1.8 %; Hematocrit (blood only) 27.5 % (34.1-44.9); Immature Granulocytes # (auto) 0.05 K/uL (0.00-0.02); Immature Granulocytes % (auto) 0.5 %; Lymphocytes # (auto) 1.75 K/uL (1.2-3.4); Lymphocytes % (auto) 17.5 %; Mean Corpuscular Hemoglobin 27.7 pg (25.0-34.0); Mean Corpuscular Hgb Conc 32.7 g/dL (32.0-36.0); Mean Corpuscular Volume 84.6 fL (80.0-100.0); Mean Platelet Volume 10.6 fL (9.4-12.3); Neutrophils # (auto) 7.02 K/uL (1.4-6.5); Platelet Count 248 K/uL (130-400); RDW Coefficient of Variation 12.8 % (11.5-14.5); RDW Standard Deviation 39.2 fL (36.4-46.3); Red Blood Count 3.25 M/uL (3.93-5.22); White Blood Count 10.02 K/ul (4.8-10.8)
[2022-05-01 06:52] LABS: BUN Creatinine Ratio 18.5 (10-20); Calcium 8.6 mg/dl (8.5-10.1); Creatinine Clr Calc Pharmacy 73.3 ml/min; Est GFR (Non-African American) 68.2 ml/min; Potassium 3.9 mmol/L (3.5-5.1)
[2022-05-01] MEDS: POLYETHYLENE (MIRALAX) 17 GM PACK PO SCH ×3 (08:11→20:41)
[2022-05-01] MEDS: DOCUSATE SODIUM 100 MG CAP PO SCH ×2 (08:11→20:40)
[2022-05-01] MEDS: MULTIVITAMIN TAB PO SCH (08:11)
[2022-05-01] MEDS: ASPIRIN 81 MG ECTAB PO SCH ×2 (08:11→20:42)
[2022-05-01] MEDS: ATENOLOL 25 MG TABLET PO SCH (08:12)
[2022-05-01] MEDS: BRIMONIDINE TARTRATE-P 0.15% 5 ML BTL OP SCH ×2 (08:12→20:43)
[2022-05-01] MEDS: PANTOprazole 40 MG TAB PO SCH (08:12)
[2022-05-01] MEDS: prednisoLONE acetate 1% OP SUSP 5 ML BTL OPL SCH ×2 (08:13→20:42)
[2022-05-01] MEDS: LIDOCAINE 5% 1 PATCH TD SCH (08:14)
--- NOTE | 2022-05-01 12:49 | Hospitalist Progress Note ---
Date of Service May 01, 2022 Assessment & Plan (1) Shoulder fracture, right: Plan: - s/p mechanical fall prior to admission and suffered a displaced right proximal humerus fracture now s/p reverse TSA right on 04/[address] Kirkpatrick post-op care as per Ortho-of note, drain can be removed today as per Ortho -with ongoing issues with pain control despite use of oxycodone 10 mg p.o. every 4 hours prn, IV Dilaudid as needed for severe breakthrough pain, and APAP s cheduled 1000 mg p.o. every 8 hours -add on Toradol 15mg IV q6h for inflammation and edema-had a bad fracture so likely edema in shoulder and hematoma causing severe pain -continue frequent icing to the area -constipation-finally with bowel movement on 04/30 and fter adding daily Miralax, senna/docusate daily -continue ASA 81mg po bid for DVT proph -Will need follow-up with orthopedic surgery 12-14 days postoperatively -May do elbow/wrist/hand motion, shrugs, pendulums (2) Acute respiratory failure with hypoxia: Plan: Was requiring 4LNC on postop day #1-weaned off and remains on room air now since 04/30 CXR as per my read with elevated Right fina-diaphragm, suspect possibly due to nerve block from shoulder surgery but no old CXR to compare to -Repeat chest x-ray on 04/30 shows improvement in atelectasis and improvement in elevated right hemidiaphragm -continue incentive spirometry, and mobilization out of bed (3) Hyponatremia: Plan: Sodium decreased to 133 and stable today, thought to be from HCTZ but also could be some SIADH from severe pain as above Suspect this as well as previous hypokalemia is secondary to HCTZ-have since discontinued HCTZ/triamterene If needs further blood pressure control, could increase atenolol dose or add on ANTHONY inhibitor -pain control -Follow BMP in the morning (4) Acute blood loss anemia: Plan: hgb down to 8.4 from 10.1 preop from blood loss from fracture and surgery Hemoglobin up now to 9.0 and stable x 2 days indicating no further blood loss drain in place with small amount bloody drainage-to be removed today follow CBC again in AM no transfusion needed, HD stable (5) Hypertension: Plan: Discontinued triamterene/HCTZ as above for hyponatremia and hypokalemia Continue atenolol and consider increasing dose of atenolol versus adding on ANTHONY inhibitor if blood pressures elevate (6) Tachycardia: Plan: - has improved continue atenolol Has since been discontinued off telemetry monitoring (7) GERD (gastroesophageal reflux disease): Plan: no acute issues -continue Protonix daily. (8) S/p reverse total shoulder arthroplasty: Plan: as above Plan DVT proph-SCDs, ASA bid Dispo-continued stay for pain control, then expect dc to home hopefully tomorrow if improved and remains without hypoxia Admission and Anticipated Discharge Date Admission Date: April 26, 2022 Subjective Having ongoing severe pain in right shoulder. Moved bowels today. No CP, SOB, remains on room air. No numbness or weakness in right hand Review of Systems Review of Systems: All systems reviewed & are unremarkable except as noted in HPI & below Physical Exam Constitutional: WD/WN, vitals as above Eyes: + anicteric sclerae Neck: trachea midline, no thyromegaly Respiratory: normal respiratory effort, lungs clear to auscultation (Improved aeration at right base) Cardiovascular: RRR, no murmur, no edema Chest (Breasts): Chest: normal inspection of chest Gastrointestinal (Abdomen): normal bowel sounds, soft, nontender, no hepatosplenomegaly Musculoskeletal: Extremities: + extremities abnormal to inspection (RUE in sling,dressing in place,drain with bloody drainage,distal NVI), no cyanosis and no clubbing with edema over right shoulder and humerus region Skin: no rashes, warm and dry Neurologic: moves all extremities and awake; no focal motor deficits Psychiatric: A+Ox3, euthymic affect Lymphatic: no lymphedema Results & Data Results & Data ([facility]) Vital Signs (Past 12 Hours) Vital Signs Temp Pulse Pulse Resp BP Pulse Ox O2 Del Method 05/01/22 08:21 36.9 C 81 18 113/71 92 Room Air 05/01/22 07:36 68 16 91 Room Air Laboratory Results 05/01/22 05:42 05/01/22 05:42 PG Care Time/CCT Total # of Minutes Spent Total Time Spent with Patient: Total time spent is greater than 50% in coordination of care (as documented) at patient's floor/unit and/or counseling patient: Coding Level of Care Code 59708 Subseq Hosp Care Lvl 2 Diagnoses Shoulder fracture, right S42.91XA Encounter type: initial encounter Fracture type: closed Acute respiratory failure with hypoxia J96.01 Hyponatremia E87.1 Acute blood loss anemia D62 Hypertension I10 Tachycardia R00.0 GERD (gastroesophageal reflux disease) K21.9 S/p reverse total shoulder arthroplasty Z96.619 (1) Shoulder fracture, right Encounter type: initial encounter Fracture type: closed Qualified Code(s): S42.91XA - Fracture of right shoulder girdle, part unspecified, initial encounter for closed fracture
[2022-05-01] MEDS: KETOROLAC TROMETHAMINE 15 MG/ML VIAL IV PRN ×2 (14:41→20:48)
[2022-05-01] MEDS: SENNA 8.6 MG TAB PO SCH (20:41)
[2022-05-01] MEDS: prednisoLONE acetate 1% OP SUSP 5 ML BTL OPR SCH (20:42)
[2022-05-02] MEDS: ACETAMINOPHEN 500 MG TAB PO SCH ×4 (00:03→21:32)
[2022-05-02] MEDS: ALBUTEROL HFA 8 GM INHALER INH SCH ×4 (01:49→17:50)
[2022-05-02] MEDS: KETOROLAC TROMETHAMINE 15 MG/ML VIAL IV PRN ×3 (06:04→21:32)
[2022-05-02 08:14] LABS: Basophils # (auto) 0.01 K/uL (0-0.2); Basophils % (auto) 0.1 %; Eosinophils # (auto) 0.24 K/uL (0-0.50); Eosinophils % (auto) 2.6 %; Hematocrit (blood only) 28.1 % (34.1-44.9); Hemoglobin 9.4 g/dl (12.0-16.0); Immature Granulocytes # (auto) 0.07 K/uL (0.00-0.02); Immature Granulocytes % (auto) 0.8 %; Lymphocytes # (auto) 1.64 K/uL (1.2-3.4); Lymphocytes % (auto) 17.8 %; Mean Corpuscular Hemoglobin 28.3 pg (25.0-34.0); Mean Corpuscular Hgb Conc 33.5 g/dL (32.0-36.0); Mean Corpuscular Volume 84.6 fL (80.0-100.0); Mean Platelet Volume 10.5 fL (9.4-12.3); Monocytes # (auto) 0.78 K/uL (0.24-0.82); Monocytes % (auto) 8.5 %; Neutrophils # (auto) 6.45 K/uL (1.4-6.5); Neutrophils % (auto) 70.2 %; Platelet Count 280 K/uL (130-400); RDW Coefficient of Variation 12.8 % (11.5-14.5); RDW Standard Deviation 38.8 fL (36.4-46.3); Red Blood Count 3.32 M/uL (3.93-5.22); White Blood Count 9.19 K/ul (4.8-10.8)
[2022-05-02] MEDS: HYDROmorphone INJ 0.5 MG/0.5 ML SYR IV PRN ×3 (08:15→18:33)
[2022-05-02] MEDS: BRIMONIDINE TARTRATE-P 0.15% 5 ML BTL OP SCH ×2 (08:16→20:09)
[2022-05-02] MEDS: prednisoLONE acetate 1% OP SUSP 5 ML BTL OPL SCH ×2 (08:17→20:10)
[2022-05-02] MEDS: PANTOprazole 40 MG TAB PO SCH (08:17)
[2022-05-02] MEDS: ATENOLOL 25 MG TABLET PO SCH (08:17)
[2022-05-02] MEDS: MULTIVITAMIN TAB PO SCH (08:18)
[2022-05-02] MEDS: ASPIRIN 81 MG ECTAB PO SCH ×2 (08:18→20:08)
[2022-05-02] MEDS: LIDOCAINE 5% 1 PATCH TD SCH (08:19)
[2022-05-02] MEDS: DOCUSATE SODIUM 100 MG CAP PO SCH ×2 (08:19→20:08)
[2022-05-02] MEDS: POLYETHYLENE (MIRALAX) 17 GM PACK PO SCH (08:19)
[2022-05-02 09:26] LABS: BUN Creatinine Ratio 21.8 (10-20); Calcium 8.7 mg/dl (8.5-10.1); Creatinine Clr Calc Pharmacy 66.7 ml/min; Est GFR (African American) 70.6 ml/min; Est GFR (Non-African American) 60.9 ml/min; Magnesium 2.3 mg/dl (1.7-2.4)
[2022-05-02] MEDS ORDERED: POLYETHYLENE (MIRALAX) 17 GM PACK PO PRN (11:20)
[2022-05-02] MEDS: SENNA 8.6 MG TAB PO SCH (20:08)
[2022-05-02] MEDS: prednisoLONE acetate 1% OP SUSP 5 ML BTL OPR SCH (20:09)
--- NOTE | 2022-05-02 22:59 | Hospitalist Progress Note ---
Date of Service May 02, 2022 Assessment & Plan (1) Shoulder fracture, right: Plan: - s/p mechanical fall prior to admission and suffered a displaced right proximal humerus fracture now s/p reverse TSA right on 04/[address] Kirkpatrick post-op care as per Ortho-drain removed -Prolonged postoperative stay due to ongoing issues with pain control despite use of oxycodone 10 mg p.o. every 4 hours prn, IV Dilaudid as needed for severe breakthrough pain, and APAP scheduled 1000 mg p.o. every 8 hours Pain is now significantly improved with addition of IV Toradol, but patient requested to stay 1 more night just to make sure the pain continues to be controlled without the use of IV Dilaudid- -continue Toradol 15mg IV q6h for inflammation and edema-had a bad fracture so likely edema in shoulder and hematoma causing severe pain -continue frequent icing to the area -[id number] will now discontinue MiraLAX 3 times daily, but continue senna/docusate -continue ASA 81mg po bid for DVT proph -Will need follow-up with orthopedic surgery 12-14 days postoperatively -May do elbow/wrist/hand motion, shrugs, pendulums (2) Acute respiratory failure with hypoxia: Plan: Was requiring 4LNC on postop day #1-weaned off and remains on room air now since 04/30 CXR as per my read with elevated Right fina-diaphragm, suspect possibly due to nerve block from shoulder surgery but no old CXR to compare to -Repeat chest x-ray on 04/30 shows improvement in atelectasis and improvement in elevated right hemidiaphragm -continue incentive spirometry, and mobilization out of bed (3) Hyponatremia: Plan: Sodium decreased to 133 and now improved to 134, thought to be from HCTZ but also could be some SIADH from severe pain as above Suspect this as well as previous hypokalemia is secondary to HCTZ-have since discontinued HCTZ/triamterene If needs further blood pressure control, could increase atenolol dose or add on ANTHONY inhibitor -pain control -Follow BMP in the morning (4) Acute blood loss anemia: Plan: hgb down to 8.4 from 10.1 preop from blood loss from fracture and surgery Hemoglobin up now to 9.0-9.4 and stable several days indicating no further blood loss drain now removed (5) Hypertension: Plan: Discontinued triamterene/HCTZ as above for hyponatremia and hypokalemia Continue atenolol and consider increasing dose of atenolol versus adding on ANTHONY inhibitor if blood pressures elevate (6) Tachycardia: Plan: - has improved continue atenolol Has since been discontinued off telemetry monitoring (7) GERD (gastroesophageal reflux disease): Plan: no acute issues -continue Protonix daily. (8) S/p reverse total shoulder arthroplasty: Plan: as above Plan DVT proph-SCDs, ASA bid Dispo-continued stay for pain control, then expect dc to home hopefully tomorrow if improved Admission and Anticipated Discharge Date Admission Date: April 26, 2022 Subjective Pain is improved today with the addition of Toradol. She still is requiring some IV Dilaudid but not nearly as much as previously. She continues to move her bowels, make urine, is eating and drinking. No nausea or vomiting. Still has some tightness under the right ribs, denies shortness of breath, remains off of supplemental oxygen. Review of Systems Review of Systems: All systems reviewed & are unremarkable except as noted in HPI & below Physical Exam Constitutional: WD/WN, vitals as above Eyes: + anicteric sclerae Neck: trachea midline, no thyromegaly Respiratory: normal respiratory effort, lungs clear to auscultation Cardiovascular: RRR, no murmur, no edema Chest (Breasts): Chest: normal inspection of chest (No mass or ecchymosis under right ribs) Gastrointestinal (Abdomen): normal bowel sounds, soft, nontender, no hepatosplenomegaly Musculoskeletal: Extremities: + extremities abnormal to inspection (RUE in sling,dressing in place, right hand NVI), no cyanosis and no clubbing Skin: no rashes, warm and dry Neurologic: moves all extremities and awake; no focal motor deficits Psychiatric: A+Ox3, euthymic affect Lymphatic: no lymphedema Results & Data Results & Data ([facility]) Vital Signs (Past 12 Hours) Vital Signs Temp Pulse Pulse Resp BP Pulse Ox O2 Del Method 05/02/22 21:33 36.8 C 75 16 132/77 96 Room Air 05/02/22 17:50 82 18 97 Room Air 05/02/22 16:05 37.1 C 76 18 133/80 95 Room Air 05/02/22 12:59 73 16 98 Room Air 05/02/22 11:00 Room Air Laboratory Results 05/02/22 07:29 05/02/22 07:29 PG Care Time/CCT Total # of Minutes Spent Total Time Spent with Patient: Total time spent is greater than 50% in coordination of care (as documented) at patient's floor/unit and/or counseling patient: Coding Level of Care Code 46823 Subseq Hosp Care Lvl 1 Diagnoses Shoulder fracture, right S42.91XA Encounter type: initial encounter Fracture type: closed Acute respiratory failure with hypoxia J96.01 Hyponatremia E87.1 Acute blood loss anemia D62 Hypertension I10 Tachycardia R00.0 GERD (gastroesophageal reflux disease) K21.9 S/p reverse total shoulder arthroplasty Z96.619 (1) Shoulder fracture, right Encounter type: initial encounter Fracture type: closed Qualified Code(s): S42.91XA - Fracture of right shoulder girdle, part unspecified, initial encounter for closed fracture
[2022-05-03] MEDS: ALBUTEROL HFA 8 GM INHALER INH SCH ×3 (00:12→13:01)
[2022-05-03] MEDS: HYDROmorphone INJ 0.5 MG/0.5 ML SYR IV PRN (00:25)
[2022-05-03] MEDS: KETOROLAC TROMETHAMINE 15 MG/ML VIAL IV PRN ×3 (04:18→15:50)
[2022-05-03] MEDS: ACETAMINOPHEN 500 MG TAB PO SCH ×2 (06:26→14:12)
[2022-05-03] MEDS: oxyCODONE HCL IR 5 MG TAB (IMMEDIATE RELEASE) PO PRN ×3 (08:33→16:57)
[2022-05-03] MEDS: MULTIVITAMIN TAB PO SCH (08:33)
[2022-05-03] MEDS: PANTOprazole 40 MG TAB PO SCH (08:33)
[2022-05-03] MEDS: prednisoLONE acetate 1% OP SUSP 5 ML BTL OPL SCH (08:34)
[2022-05-03] MEDS: ATENOLOL 25 MG TABLET PO SCH (08:34)
[2022-05-03] MEDS: ASPIRIN 81 MG ECTAB PO SCH (08:34)
[2022-05-03] MEDS: BRIMONIDINE TARTRATE-P 0.15% 5 ML BTL OP SCH (08:34)
[2022-05-03] MEDS: DOCUSATE SODIUM 100 MG CAP PO SCH (08:36)
[2022-05-03] MEDS: LIDOCAINE 5% 1 PATCH TD SCH (08:36)
--- NOTE | 2022-05-03 14:53 | Discharge Summary ---
Date of Service May 03, 2022 Admission HPI Per Admitting Provider Miguel Gracia is a 61-year-old female with a history of hypertension, intermittent sinus tachycardia, and GERD who is presenting today at the referral of orthopedics for pain management. Patient fell off a chair 3 days ago on Tuesday, 04/23 while standing on it to reach something overhead. She was seen at an outside hospital that day. She has a displaced right proximal humerus fracture, was sent home with Percocet for pain management and was to follow-up with orthopedics today for surgical planning. She met with Dr. Kirkpatrick today, and he been complaining of 10/10 pain not relieved with prescribed Percocet, Aleve, or Tylenol and has not been able to sleep due to the pain. He referred her to the ED today to be admitted for pain control with plan for a procedure Tuesday, 04/28. On presentation, heart rate in the 90s, mildly hypertensive, otherwise vital signs within normal limits and stable. Labs notable for an Hgb of 10.8 unsure of baseline, CMP with K 3.2, glucose 197, calcium 8.4. CT: Severely comminuted and displaced right humeral head/neck fracture with associated anterior dislocation of the humeral head fragments. Principal Diagnosis Right humerus fracture Acute blood loss anemia Acute respiratory failure with hypoxia Intractable pain Discharge Exam Constitutional WD/WN, vitals as above Eyes + anicteric sclerae Neck trachea midline, no thyromegaly Respiratory normal respiratory effort, lungs clear to auscultation Cardiovascular RRR, no murmur, no edema Gastrointestinal (Abdomen) normal bowel sounds, soft, nontender, no hepatosplenomegaly Musculoskeletal Extremities: + extremities abnormal to inspection (RUE in sling,dressing in place, right hand NVI), no cyanosis and no clubbing Skin no rashes, warm and dry Neurologic moves all extremities and awake; no focal motor deficits Psychiatric A+Ox3, euthymic affect Lymphatic no lymphedema Discharge Data Allergies Allergy/AdvReac Type Severity Reaction Status Date / Time iodine Allergy Mild Hives Verified 04/27/22 09:18 Sulfa (Sulfonamide Allergy Mild Hives Verified 04/27/22 09:18 Antibiotics) sulfamethoxazole Allergy Mild Hives Verified 04/27/22 09:18 [From Bactrim] trimethoprim [From Bactrim] Allergy Mild Hives Verified 04/27/22 09:18 povidone-iodine Allergy Unknown Hives Verified 04/27/22 11:36 [From Betadine] Consultations 04/26/22 20:02 ED Decision to Admit Stat 04/26/22 23:28 Consult Orthopedic Surgery Routine Procedures Performed Operation Date: 04/28/22 12:55 Actual Procedures p Right Reverse Fracture Total Shoulder Arthroplasty(Right) - Ishmael Kirkpatrick MD Ordered Studies 04/26/22 19:03 CT shoulder RT wo con Stat 04/28/22 15:47 US - OR guided needle placemen Routine Hospital Course (1) Shoulder fracture, right: - s/p mechanical fall prior to admission and suffered a displaced right proximal humerus fracture now s/p reverse TSA right on 04/[address] Kirkpatrick post-op care as per Ortho-drain removed -Prolonged postoperative stay due to ongoing issues with pain control despite use of oxycodone 10 mg p.o. every 4 hours prn, IV Dilaudid as needed for severe breakthrough pain, and APAP scheduled 1000 mg p.o. every 8 hours Pain is now significantly improved with addition of IV Toradol and was not requiring any further IV dilaudid by the day of discharge -continue ibuprofen 800mg po tid prn for inflammation, pain, and edema-had a bad fracture so likely edema in shoulder and hematoma causing severe pain -continue scheduled tylenol and prn xycodone on discharge -continue frequent icing to the area -jlbihrhhqzyx-qbcjvgut-dlfhmobc docusate on discharge -continue ASA 81mg po bid for DVT proph -Will need follow-up with orthopedic surgery 12-14 days postoperatively -May do elbow/wrist/hand motion, shrugs, pendulums (2) Acute respiratory failure with hypoxia: Was requiring 4LNC on postop day #1-weaned off and remains on room air now since 04/30 CXR as per my read with elevated Right fina-diaphragm, suspect possibly due to nerve block from shoulder surgery but no old CXR to compare to -Repeat chest x-ray on 04/30 shows improvement in atelectasis and improvement in elevated right hemidiaphragm -continue incentive spirometry, and mobilization out of bed (3) Hyponatremia: Sodium decreased to 133 and now improved to 134, thought to be from HCTZ but also could be some SIADH from severe pain as above Suspect this as well as previous hypokalemia is secondary to HCTZ-have since discontinued HCTZ/triamterene If needs further blood pressure control, could increase atenolol dose or add on ANTHONY inhibitor as an otpt (4) Acute blood loss anemia: hgb down to 8.4 from 10.1 preop from blood loss from fracture and surgery Hemoglobin up now to 9.0-9.4 and stable several days indicating no further blood loss drain now removed start ferrous sulfate and docusate bid for a few weeks post-op follow CBC as outpt (5) Hypertension: Discontinued triamterene/HCTZ as above for hyponatremia and hypokalemia Continue atenolol and consider increasing dose of atenolol versus adding on ANTHONY inhibitor if blood pressures elevate (6) Tachycardia: - has resolved continue atenolol (7) GERD (gastroesophageal reflux disease): no acute issues -continue Protonix daily. (8) S/p reverse total shoulder arthroplasty: as above Plan DVT proph-SCDs, ASA bid Dispo-dc to home today Total Time Total Time Spent Total Time Spent (In Minutes): 35 min Discharge Plan Discharge Items Patient Disposition: Home - Self-Care Reason For Visit: SHOULDER FRACTURE Discharge Diagnosis: Comminuted Proximal Humerus Fracture Acute respiratory failure with hypoxia Acute blood loss anemia Hyponatremia (low sodium) Condition on Discharge: Fair Activity: Per Instructions section Weightbearing: Right non-weightbearing Non-emergency contact: Primary Care Provider and Surgeon Call non-emergency contact if: you have any medication questions, your pain is not controlled, your temperature is above 101.5, your wound has increased redness and your wound has increased drainage Follow-up/Referrals: Ishmael Kirkpatrick MD [Surgeon] - (Follow up with Dr. Kirkpatrick in 2 weeks from the day of your surgery for your first post operative visit. ) Gagan Salguero DO [Primary Care Provider] - (Follow up within 1-2 weeks.) Diet: Regular Addtl Attending Provider Instructions: You can take ibuprofen and oxycodone as needed for pain. Continue to ice the shoulder to reduce swelling and pain. You had some blood loss but your blood count remained stable prior to discharge. You can take over the counter iron pills for a few weeks to help build your blood count back up towards normal. This can make you constipated (iron pills) so you can take a stool softener as well. Your oxygen levels remained normal for many days prior to discharge. Your sodium and potassium levels were low likely from your water pill you take for high blood pressure. This medication was STOPPED. If you need another blood pressure medication, your PCP should trial a different type of medication for you. 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 You may do daily exercises as taught in physical therapy while in hospital. No lifting with the operative arm. B. You are to wear your sling/immobilizer at all times EXCEPT when performing your daily exercises and for hygiene purposes. C. You may perform dry, daily dressing changes. Please keep your incision cove red. You may shower 48 hours after surgery. Do not apply soap or any ointment/lotions directly over incision. Do not soak incision in bath tub/swimming pool. D. You may use ice as needed to operative shoulder. SPECIAL CARE INSTRUCTIONS: VERY IMPORTANT TO READ AND REVIEW A. There are a few signs you need to watch for after you are home. Call [facility] at [phone] if you experience any of the followin. Increased severe shoulder pain. Some pain is expected especially when you exercise. 2. Increased swelling in you shoulder or arm; pain or swelling in either upper extremity. 3. Any fluid drainage from the incision. 4. Shortness of breath or chest pain. B. Please call [facility] at [phone] if you have any questions or concerns about your operation or recovery. C. Call your physician if: 1. Temperature is greater than 101 degrees (F). 2. Pain is not relieved by prescribed pain medications. 3. Increase drainage or redness from incision. 4. Unanswered questions or concerns. FOLLOW UP VISIT: Please call [facility] at [phone] to schedule a follow up appointment with Dr. Kirkpatrick or his PA in 12-14 days from your surgery date. Pending Studies at Discharge: No Stand-Alone Forms: My My[employer], Smoking Cessation Medications and DC Order Prescriptions: New acetaminophen [Tylenol Extra Strength] 500 mg Tablet 1,000 mg PO Q8 Qty: 60 0RF Rx Instructions: OTC aspirin 81 mg Tablet,Delayed Release (Dr/Ec) 81 mg PO BID Qty: 60 0RF Rx Instructions: OTC oxycodone 5 mg Tablet 5 - 10 mg PO Q4H PRN (Reason: moderate-severe pain) Qty: 30 0RF docusate sodium 100 mg Capsule 100 mg PO BID Qty: 60 0RF Rx Instructions: OTC lidocaine 5 % Adhesive Patch,Medicated 1 patch transdermal QAM Qty: 15 0RF Rx Instructions: apply to right shoulder ferrous sulfate 325 mg (65 mg iron) tablet 325 mg PO BID Qty: 60 0RF Rx Instructions: OTC ibuprofen 200 mg tablet 800 mg PO TID PRN (Reason: pain) Qty: 60 0RF Rx Instructions: OTC Continued ketoconazole 2 % shampoo 1 applic TOPICAL 2XWK PRN (Reason: Dry Skin) albuterol sulfate 2.5 mg /3 mL (0.083 %) solution for nebulization 2.5 mg continuous nebulization Q6H atenolol 25 mg tablet 25 mg PO QAM betamethasone valerate 0.1 % lotion 1 applic TOPICAL 2XWK PRN (Reason: Dry Skin) benzonatate 100 mg capsule 100 mg PO BID PRN (Reason: Cough) pantoprazole 40 mg tablet,delayed release (DR/EC) 40 mg PO DAILY metronidazole 0.75 % cream 1 applic TOPICAL BID brimonidine 0.2 % drops 1 drp OPR BID albuterol sulfate 90 mcg/actuation HFA aerosol inhaler 2 inh INHALATION Q6H Discontinued triamterene-hydrochlorothiazid 37.5-25 mg tablet 1 tab PO QAM Discharge Orders: Discharge Order (Routine); Ordered 05/03/22 Ordered By: Ngozi Estevez Admission Data Admit Date/Time: 04/26/22 19:55 Attending Provider: Ngozi Estevez Admit Provider: Harriett Ricks Primary Care Provider: Gagan Salguero Other Providers: Harriett Ricks ; Ishmael Kirkpatrick Coding Level of Care Code D/C DAY MANAGEMENT >30 MINS Diagnoses Shoulder fracture, right S42.91XA Encounter type: initial encounter Fracture type: closed Acute respiratory failure with hypoxia J96.01 Hyponatremia E87.1 Acute blood loss anemia D62 Hypertension I10 Tachycardia R00.0 GERD (gastroesophageal reflux disease) K21.9 S/p reverse total shoulder arthroplasty Z96.619
== END 2022-05-03 17:21 | disposition home or self-care (01) | DRG 483 ==
LOC: ED 15:35 → SUATTDRO 19:55 → EDINP 19:55 → 2N 23:29 → 3N 05-01 23:36